=== PATIENT | female | born 1950 | race Caucasian/White ===

== ENCOUNTER 2017-08-02 09:04 | Inpatient (IN) | payer MEDICARE, OTHER ==
--- NOTE | 2017-08-02 09:28 | ED ---
General Adult HPI - General Chief complaint: Shortness of Breath Stated complaint: shortness of breath Time Seen by Provider: 08/02/17 09:13 Source: patient, RN notes reviewed Mode of arrival: wheelchair Limitations: no limitations - History of Present Illness Initial comments: Patient is a 66-year-old female presenting to the emergency room today with a chief complaint of increased shortness of breath over the last 3 months but she states it started with an upper respiratory infection. She states she still has a mild cough. No sputum production. She states she has been following up the family doctor. Most recently saw them yesterday has had lab work obtained. Patient states that last night she had increased shortness of breath when she was trying to sleep. She does admit that symptoms are worse when she tries to lay down flat or when she sits up. She also admits that when she gets up and is moving around too much she begins feeling more short of breath. Patient denies any pain. She denies any other complaints or symptoms. Patient states she is not a smoker. No history of heart or lung problems. She does admit to some swelling to the lower extremities at times. Patient denies any recent fever, chills, chest pain, back pain, abdominal pain, nausea or vomiting, numbness or tingling, dysuria or hematuria, constipation or diarrhea, headaches or visual changes, or any other complaints. - Related Data Home Medications Medication Instructions Recorded Confirmed No Known Home Medications [No 08/02/17 08/02/17 Known Home Medications] Allergies Allergy/AdvReac Type Severity Reaction Status Date / Time No Known Allergies Allergy Verified 08/02/17 09:20 Review of Systems ROS Statement: Those systems with pertinent positive or pertinent negative responses have been documented in the HPI. ROS Other: All systems not noted in ROS Statement are negative. Past Medical History Past Medical History: No Reported History History of Any Multi-Drug Resistant Organisms: None Reported Past Surgical History: Cholecystectomy Past Psychological History: No Psychological Hx Reported Smoking Status: Never smoker Past Alcohol Use History: None Reported General Exam - General Exam Comments Initial Comments: General: The patient is awake and alert, in no distress, and does not appear acutely ill. Eye: Pupils are equal, round and reactive to light, extra-ocular movements are intact. No nystagmus. There is normal conjunctiva bilaterally. No signs of icterus. Ears, nose, mouth and throat: There are moist mucous membranes and no oral lesions. Neck: The neck is supple, there is no tenderness or JVD. Cardiovascular: There is a regular rate and rhythm. No murmur, rub or gallop is appreciated. Respiratory: Lungs are clear to auscultation, respirations are non-labored, breath sounds are equal. No wheezes, stridor, rales, or rhonchi. Musculoskeletal: Normal ROM, no tenderness. Strength 5/5. Sensation intact. Pulses equal bilaterally 2+. No pitting edema. Neurological: A&O x 3. CN II-XII intact, There are no obvious motor or sensory deficits. Coordination appears grossly intact. Speech is normal. Skin: Skin is warm and dry and no rashes or lesions are noted. Psychiatric: Cooperative, appropriate mood & affect, normal judgment. Limitations: no limitations Course Vital Signs 08/02/17 08/02/17 08/02/17 09:06 09:27 10:33 Temperature 97.0 F L Pulse Rate 95 85 83 Respiratory 20 22 20 Rate Blood Pressure 194/103 159/95 173/99 O2 Sat by Pulse 96 94 L 95 Oximetry EKG Findings - EKG Comments: EKG Findings:: EKG performed at 0927: Shows sinus rhythm with occasional PVC at 92 bpm. Left axis deviation and left bundle branch block. SC interval 154. QRS 138 per QT/QTc 414/511. Medical Decision Making - Medical Decision Making Patient reexamined at this time shows no signs of distress. Chest x-ray does reveal a pneumonia. Patient's BNP greater than 8 hours. Patient's remaining labs unremarkable. Patient be admitted to the hospital as discussed with attending physician Dr. Mcgrath discussed with Dr. Patel who recommends checking d-dimer. Patient will be admitted. She will plan states understanding. IV antibiotics started here in the emergency room of Rocephin and azithromycin. - Lab Data Result diagrams: 08/02/17 09:40 08/02/17 09:40 Lab Results 08/02/17 08/02/17 08/02/17 Range/Units 09:40 09:40 09:40 WBC 7.7 (3.8-10.6) k/uL RBC 4.74 (3.80-5.40) m/uL Hgb 12.8 (11.4-16.0) gm/dL Hct 40.5 (34.0-46.0) % MCV 85.4 (80.0-100.0) fL MCH 26.9 (25.0-35.0) pg MCHC 31.5 (31.0-37.0) g/dL RDW 14.7 (11.5-15.5) % Plt Count 209 (150-450) k/uL Neutrophils % 74 % Lymphocytes % 18 % Monocytes % 6 % Eosinophils % 1 % Basophils % 0 % Neutrophils # 5.7 (1.3-7.7) k/uL Lymphocytes # 1.4 (1.0-4.8) k/uL Monocytes # 0.4 (0-1.0) k/uL Eosinophils # 0.1 (0-0.7) k/uL Basophils # 0.0 (0-0.2) k/uL Hypochromasia Slight PT (9.0-12.0) sec INR (<1.2) APTT (22.0-30.0) sec Sodium 144 (137-145) mmol/L Potassium 4.3 (3.5-5.1) mmol/L Chloride 105 (98-107) mmol/L Carbon Dioxide 25 (22-30) mmol/L Anion Gap 14 mmol/L BUN 23 H (7-17) mg/dL Creatinine 0.77 (0.52-1.04) mg/dL Est GFR (CKD-EPI)AfAm >90 (>60 ml/min/1.73 sqM) Est GFR (CKD-EPI)NonAf 81 (>60 ml/min/1.73 sqM) Glucose 93 (74-99) mg/dL Calcium 9.0 (8.4-10.2) mg/dL Total Bilirubin 0.7 (0.2-1.3) mg/dL AST 27 (14-36) U/L ALT 31 (9-52) U/L Alkaline Phosphatase 102 (38-126) U/L Total Creatine Kinase 38 (30-135) U/L CK-MB (CK-2) 1.1 (0.0-2.4) ng/mL CK-MB (CK-2) Rel Index 2.9 Troponin I 0.027 (0.000-0.034) ng/mL NT-Pro-B Natriuret Pep pg/mL Total Protein 6.8 (6.3-8.2) g/dL Albumin 4.1 (3.5-5.0) g/dL Urine Color Urine Appearance (Clear) Urine pH (5.0-8.0) Ur Specific Galva (1.001-1.035) Urine Protein (Negative) Urine Glucose (UA) (Negative) Urine Ketones (Negative) Urine Blood (Negative) Urine Nitrite (Negative) Urine Bilirubin (Negative) Urine Urobilinogen (<2.0) mg/dL Ur Leukocyte Esterase (Negative) 08/02/17 08/02/17 08/02/17 Range/Units 09:40 09:40 11:14 WBC (3.8-10.6) k/uL RBC (3.80-5.40) m/uL Hgb (11.4-16.0) gm/dL Hct (34.0-46.0) % MCV (80.0-100.0) fL MCH (25.0-35.0) pg MCHC (31.0-37.0) g/dL RDW (11.5-15.5) % Plt Count (150-450) k/uL Neutrophils % % Lymphocytes % % Monocytes % % Eosinophils % % Basophils % % Neutrophils # (1.3-7.7) k/uL Lymphocytes # (1.0-4.8) k/uL Monocytes # (0-1.0) k/uL Eosinophils # (0-0.7) k/uL Basophils # (0-0.2) k/uL Hypochromasia PT 11.3 (9.0-12.0) sec INR 1.2 H (<1.2) APTT 23.3 (22.0-30.0) sec Sodium (137-145) mmol/L Potassium (3.5-5.1) mmol/L Chloride (98-107) mmol/L Carbon Dioxide (22-30) mmol/L Anion Gap mmol/L BUN (7-17) mg/dL Creatinine (0.52-1.04) mg/dL Est GFR (CKD-EPI)AfAm (>60 ml/min/1.73 sqM) Est GFR (CKD-EPI)NonAf (>60 ml/min/1.73 sqM) Glucose (74-99) mg/dL Calcium (8.4-10.2) mg/dL Total Bilirubin (0.2-1.3) mg/dL AST (14-36) U/L ALT (9-52) U/L Alkaline Phosphatase (38-126) U/L Total Creatine Kinase (30-135) U/L CK-MB (CK-2) (0.0-2.4) ng/mL CK-MB (CK-2) Rel Index Troponin I (0.000-0.034) ng/mL NT-Pro-B Natriuret Pep 8440 pg/mL Total Protein (6.3-8.2) g/dL Albumin (3.5-5.0) g/dL Urine Color Yellow Urine Appearance Clear (Clear) Urine pH 5.5 (5.0-8.0) Ur Specific Galva 1.017 (1.001-1.035) Urine Protein Trace H (Negative) Urine Glucose (UA) Negative (Negative) Urine Ketones 1+ H (Negative) Urine Blood Negative (Negative) Urine Nitrite Negative (Negative) Urine Bilirubin Negative (Negative) Urine Urobilinogen <2.0 (<2.0) mg/dL Ur Leukocyte Esterase Negative (Negative) Disposition Clinical Impression: Community acquired pneumonia, CHF (congestive heart failure) Disposition: ADMITTED IP TO THIS [facility] Condition: Stable Is patient prescribed a controlled substance at d/c from ED?: No Referrals: Cleveland Patel MD [Primary Care Provider] - 1-2 days Time of Disposition: 10:40
--- NOTE | 2017-08-02 09:56 | XR ---
EXAMINATION TYPE: XR chest 2V DATE OF EXAM: 08/02/2017 COMPARISON: NONE TECHNIQUE: PA and lateral views submitted. HISTORY: Difficulty breathing and cough FINDINGS: Bilateral lower lobe infiltrate with small effusion. The heart is enlarged. Curvature the spine noted . No pneumothorax. Arthropathy of the shoulders. Mild central venous interstitial changes. IMPRESSION: 1. Bilateral lower lobe infiltrate and small effusion. Correlate for mild central venous congestion.
[2017-08-02 10:01] LABS: Basophils % (A) 0 %; Eosinophils # (A) 0.1 k/uL (0-0.7); Eosinophils % (A) 1 %; HCT 40.5 % (34.0-46.0); HGB 12.8 gm/dL (11.4-16.0); Hypochromasia Slight; Lymphocytes # (A) 1.4 k/uL (1.0-4.8); Lymphocytes % (A) 18 %; MCH 26.9 pg (25.0-35.0); MCHC 31.5 g/dL (31.0-37.0); MCV 85.4 fL (80.0-100.0); Mean Platelet Volume 8.6; Monocytes # (A) 0.4 k/uL (0-1.0); Monocytes % (A) 6 %; Neutrophils # (A) 5.7 k/uL (1.3-7.7); Neutrophils % (A) 74 %; Platelet Count 209 k/uL (150-450); RBC 4.74 m/uL (3.80-5.40); RDW 14.7 % (11.5-15.5); WBC 7.7 k/uL (3.8-10.6)
[2017-08-02 10:09] LABS: INR 1.2 (<1.2); Partial Thromboplastin Time 23.3 sec (22.0-30.0); Prothrombin Time 11.3 sec (9.0-12.0)
[2017-08-02 10:11] LABS: ALT 31 U/L (9-52); AST 27 U/L (14-36); Albumin 4.1 g/dL (3.5-5.0); Alkaline Phosphatase 102 U/L (38-126); Anion Gap 14 mmol/L; Blood Urea Nitrogen 23 mg/dL (7-17); Carbon Dioxide 25 mmol/L (22-30); Chloride 105 mmol/L (98-107); Glucose 93 mg/dL (74-99); Potassium 4.3 mmol/L (3.5-5.1); Sodium 144 mmol/L (137-145); Total Bilirubin 0.7 mg/dL (0.2-1.3); Total Protein 6.8 g/dL (6.3-8.2)
[2017-08-02 10:38] LABS: Creatine Kinase MB 1.1 ng/mL (0.0-2.4); Troponin I 0.027 ng/mL (0.000-0.034)
[2017-08-02] MEDS ORDERED: cefTRIAXone IN SWFI 1,000 MG/10 ML SYRINGE IVP STA (10:49)
[2017-08-02] MEDS ORDERED: AZITHROMYCIN 500 MG in SODIUM CHLORIDE 0.9% 250 ML IVPB STA (10:49)
[2017-08-02 11:35] LABS: Appearance,Urine Clear (Clear); Bilirubin,Urine Negative (Negative); Blood,Urine Negative (Negative); Color,Urine Yellow; Glucose,Urine (UA) Negative (Negative); Ketones,Urine 1+ (Negative); Leukocyte Esterase,Urine Negative (Negative); Nitrite,Urine Negative (Negative); PH, Urine 5.5 (5.0-8.0); Protein,Urine Trace (Negative); Specific Gravity,Urine 1.017 (1.001-1.035); Urobilinogen,Urine <2.0 mg/dL (<2.0)
[2017-08-02] MEDS ORDERED: LORazepam 2 MG/ML INJ IV PRN (11:36)
[2017-08-02] MEDS ORDERED: ONDANSETRON 4 MG/2 ML VIAL IVP PRN (11:36)
[2017-08-02] MEDS ORDERED: IBUPROFEN 400 MG TAB PO PRN (11:36)
[2017-08-02] MEDS ORDERED: ACETAMINOPHEN TAB 325 MG TAB PO PRN (11:36)
[2017-08-02] MEDS ORDERED: NALOXONE 0.4 MG/ML 1 ML VIAL IV PRN (11:36)
[2017-08-02] MEDS ORDERED: SODIUM CHLORIDE 0.9% 1,000 ML IV ONE (11:36)
[2017-08-02] MEDS ORDERED: PNEUMOCOCCAL VACC-PNEUMOVAX 23 25 MCG/0.5 ML VIAL IM ONE (13:08)
--- NOTE | 2017-08-02 17:54 | NM ---
EXAMINATION TYPE: NM pul vent and perfuse DATE OF EXAM: 08/02/2017 COMPARISON: NONE HISTORY: TECHNIQUE: Utilizing inhalation of 29.9 mCi Tc 99m DTPA aerosol and intravenous injection of 5.22 mC i of Tc 99m MAA, ventilation and perfusion images are acquired post injection in multiple projections . FINDINGS: There are numerous areas of ventilation abnormality in the periphery of both lungs. Perfusion images show small subsegmental peripheral defects. There is no ventilation/perfusion mismatch. The ventilati on abnormalities are worse than the perfusion abnormalities. IMPRESSION: No evidence of pulmonary embolism. There is a low probability. There is bilateral moderate diffuse ai rway disease.
[2017-08-03 08:13] LABS: Basophils % (A) 0 %; Eosinophils # (A) 0.2 k/uL (0-0.7); Eosinophils % (A) 3 %; HCT 40.7 % (34.0-46.0); HGB 12.3 gm/dL (11.4-16.0); Hypochromasia Moderate; Lymphocytes # (A) 1.5 k/uL (1.0-4.8); Lymphocytes % (A) 24 %; MCH 26.3 pg (25.0-35.0); MCHC 30.3 g/dL (31.0-37.0); MCV 86.9 fL (80.0-100.0); Mean Platelet Volume 8.2; Monocytes # (A) 0.5 k/uL (0-1.0); Monocytes % (A) 7 %; Neutrophils # (A) 4.2 k/uL (1.3-7.7); Neutrophils % (A) 65 %; Platelet Count 195 k/uL (150-450); RBC 4.68 m/uL (3.80-5.40); RDW 14.9 % (11.5-15.5); WBC 6.4 k/uL (3.8-10.6)
[2017-08-03] MEDS: cefTRIAXone IN SWFI 1,000 MG/10 ML SYRINGE IVP SCH (08:18)
[2017-08-03 08:23] LABS: Albumin 3.6 g/dL (3.5-5.0); Potassium 4.5 mmol/L (3.5-5.1); Total Bilirubin 0.4 mg/dL (0.2-1.3); Total Protein 6.4 g/dL (6.3-8.2)
[2017-08-03] MEDS ORDERED: AZITHROMYCIN 500 MG in SODIUM CHLORIDE 0.9% 250 ML IVPB SCH (09:00)
--- NOTE | 2017-08-03 12:31 | P.CRDCN ---
History of Present Illness Consult date: 08/03/17 History of present illness: This is a 66-year-old female with no significant past medical history , is admitted to the hospital with complaints of increasing shortness of breath and orthopnea. Patient claims that walking to her car, make her short of breath. She also noticed mild swelling of the feet. She claims the symptoms have been going on for the last 2 months. She denied any chest pain, palpitations, dizziness or syncopal episodes. Her EKG showed evidence of left bundle branch block pattern. Her echo Card[place] showed severely impaired LV function. Her BNP is elevated. The findings are consistent with cardiomyopathy and congestive heart failure. Patient has family history of CHF in her mother. I' m going to start her on Coreg, lisinopril, Lasix, and spironolactone. If the LV function doesn't improve with medical therapy, patient may benefit from biventricular pacemaker. Further recommendations depend upon the clinical course. Patient may also need further evaluation to rule out underlying ischemic heart disease. She claims she doesn't have any history of hypertension , diabetes or hypercholesterolemia. She hasn't been taking any medication Previously. on a consistent basis. Review of Systems As per HPI Past Medical History Past Medical History: GERD/Reflux, Hyperlipidemia, Osteoarthritis (OA), Pneumonia Additional Past Medical History / Comment(s): Pt states lately she has been running high blood pressures, pneumonia as a child, high cholesterol but pt believes she took herself off her medication years ago, arthritis bilateral knees. History of Any Multi-Drug Resistant Organisms: None Reported Past Surgical History: Cholecystectomy, Orthopedic Surgery, Tubal Ligation Additional Past Surgical History / Comment(s): L knee arthroscopy, colonoscopy. Past Anesthesia/Blood Transfusion Reactions: No Reported Reaction Smoking Status: Never smoker - Past Family History Father Family Medical History: Congestive Heart Failure (CHF), Osteoarthritis (OA) Additional Family Medical History / Comment(s): Father of CHF at the age of 73 yrs. Mother Family Medical History: Congestive Heart Failure (CHF) Additional Family Medical History / Comment(s): Mother of CHF at the age of 80yrs. Medications and Allergies Home Medications Medication Instructions Recorded Confirmed Type No Known Home Medications [No 08/02/17 08/02/17 History Known Home Medications] Allergies Allergy/AdvReac Type Severity Reaction Status Date / Time No Known Allergies Allergy Verified 08/02/17 09:20 Physical Exam Vitals: Vital Signs Temp Pulse Resp BP Pulse Ox 08/03/17 08:20 76 16 08/03/17 06:00 97.5 F L 76 16 143/89 93 L 08/02/17 22:35 97.9 F 76 16 133/74 92 L 08/02/17 14:34 97.9 F 92 16 148/94 94 L 08/02/17 12:28 96.8 F L 97 16 159/100 95 Intake and Output 08/02/17 08/03/17 08/03/17 22:59 06:59 14:59 Intake Total 275 Balance 275 Intake: Oral 275 Other: Voiding Method Toilet Toilet # Voids 1 2 Weight 81.5 kg 81.5 kg GENERAL EXAM: Patient is alert and oriented and doesn't appear to be in any acute distress HEENT: Normocephalic. Normal reaction of pupils, equal size, normal range of extraocular motion. No erythema or exudates in the throat. NECK: No masses, no nuchal rigidity. There is jugular venous distention CHEST: No chest wall deformity. LUNGS: Equal air entry with no crackles or wheeze. Diminished breath sounds at bases HEART: S1 and S2 normal with no audible mumurs or gallops. Regular rhythm, femorals equal on both sides.. ABDOMEN: No hepatosplenomegaly, normal bowel sounds, no guarding or rigidity. SKIN: No rashes CENTRAL NERVOUS SYSTEM: No focal deficits. EXTREMITIES: No cyanosis, clubbing. 2+ edema. Results 08/03/17 07:55 08/03/17 07:55 Cardiac Enzymes 08/03/17 Range/Units 07:55 AST 24 (14-36) U/L CBC 08/03/17 Range/Units 07:55 WBC 6.4 (3.8-10.6) k/uL RBC 4.68 (3.80-5.40) m/uL Hgb 12.3 (11.4-16.0) gm/dL Hct 40.7 (34.0-46.0) % Plt Count 195 (150-450) k/uL Comprehensive Metabolic Panel 08/03/17 Range/Units 07:55 Sodium 146 H (137-145) mmol/L Potassium 4.5 (3.5-5.1) mmol/L Chloride 106 (98-107) mmol/L Carbon Dioxide 29 (22-30) mmol/L BUN 19 H (7-17) mg/dL Creatinine 0.83 (0.52-1.04) mg/dL Glucose 106 H (74-99) mg/dL Calcium 9.0 (8.4-10.2) mg/dL AST 24 (14-36) U/L ALT 41 (9-52) U/L Alkaline Phosphatase 86 (38-126) U/L Total Protein 6.4 (6.3-8.2) g/dL Albumin 3.6 (3.5-5.0) g/dL Current Medications Generic Name Dose Route Start Last Admin Trade Name Freq PRN Reason Stop Dose Admin Acetaminophen 650 mg 08/02/17 11:36 Tylenol Tab PO Q6HR PRN Mild Pain or Fever > 100.5 Azithromycin 500 mg 08/04/17 09:00 Zithromax PO DAILY [facility] Carvedilol 3.125 mg 08/03/17 17:30 Coreg PO BID-W/MEALS [facility] Ceftriaxone Sodium 1,000 mg 08/03/17 09:00 08/03/17 08:18 Rocephin IVP 1,000 mg Q24HR [place] Administration Furosemide 20 mg 08/03/17 12:30 Lasix IV Q12HR [facility] Ibuprofen 400 mg 08/02/17 11:36 Motrin PO Q6HR PRN Mild Pain or Fever > 100.5 Lisinopril 5 mg 08/03/17 12:30 Zestril PO DAILY [facility] Lorazepam 0.5 mg 08/02/17 11:36 Ativan IV Q6HR PRN Anxiety Naloxone HCl 0.2 mg 08/02/17 11:36 Narcan IV Q2M PRN Opioid Reversal Ondansetron HCl 4 mg 08/02/17 11:36 Zofran IVP Q8HR PRN Nausea And Vomiting Intake and Output 08/02/17 08/03/17 08/03/17 22:59 06:59 14:59 Intake Total 275 Balance 275 Intake: Oral 275 Other: Voiding Method Toilet Toilet # Voids 1 2 Weight 81.5 kg 81.5 kg Patient Weight 08/04/17 06:59 Weight 81.5 kg 08/03/17 07:55 08/03/17 07:55 EKG Interpretations (text) Sinus rhythm with left bundle-branch block pattern Assessment and Plan (1) CHF (congestive heart failure) Current Visit: Yes Status: Acute Code(s): I50.9 - HEART FAILURE, UNSPECIFIED SNOMED Code(s): 12298869 (2) Cardiomyopathy Current Visit: Yes Status: Acute Code(s): I42.9 - CARDIOMYOPATHY, UNSPECIFIED SNOMED Code(s): 52204213 (3) Left bundle branch block (LBBB) Current Visit: Yes Status: Acute Code(s): I44.7 - LEFT BUNDLE-BRANCH BLOCK, UNSPECIFIED SNOMED Code(s): 75865160 Plan: Patient is going be started on Coreg, lisinopril, Lasix and aldactone. Follow electrolytes closely. If LV function doesn't improve with medical therapy, patient may need a baby pacemaker and possible defibrillator.
[2017-08-03] MEDS: LISINOPRIL 5 MG TAB PO SCH (13:09)
[2017-08-03] MEDS: FUROSEMIDE 10 MG/ML 2 ML VIAL IV SCH ×2 (13:09→20:22)
[2017-08-03] MEDS: SPIRONOLACTONE 25 MG TAB PO SCH (13:10)
--- NOTE | 2017-08-03 13:11 | ECHOF ---
Referral Reason:SOB, cardiomegaly MEASUREMENTS -------- HEIGHT: 157.5 cm WEIGHT: 81.2 kg BP: 148/94 RVIDd: 2.8 cm (< 3.3) IVSd: 1.2 cm (0.6 - 1.1) LVIDd: 5.2 cm (3.9 - 5.3) LVPWd: 1.3 cm (0.6 - 1.1) IVSs: 1.5 cm LVIDs: 4.8 cm LVPWs: 2.0 cm LA Diam: 4.7 cm (2.7 - 3.8) LAESV Index (A-L): 44.68 ml/m Ao Diam: 3.3 cm (2.0 - 3.7) AV Cusp: 2.2 cm (1.5 - 2.6) MV EXCURSION: 14.924 mm (> 18.000) MV EF SLOPE: 75 mm/s (70 - 150) EPSS: 1.9 cm MV E Terry: 1.22 m/s MV DecT: 156 ms MV A Terry: 0.44 m/s MV E/A Ratio: 2.80 RAP: 15.00 mmHg RVSP: 54.20 mmHg FINDINGS -------- Sinus rhythm. This was a technically good study. The left ventricular size is normal. There is mild concentric left ventricular hypertrophy. Overa ll left ventricular systolic function is severely impaired with, an EF < 20%. Septal wall motion is delayed, and consistent with conduction delay/bundle branch block. The right ventricle is normal in size. LA is severely dilated >40 ml/m2 The right atrium is normal in size. There is mild aortic valve sclerosis. There is mild aortic regurgitation. The mitral valve leaflets are mildly thickened. Mild mitral annular calcification present. Modera te mitral regurgitation is present. Mild tricuspid regurgitation present. There is moderate pulmonary hypertension. The right ventric ular systolic pressure, as measured by Doppler, is 54.20mmHg. Trace/mild (physiologic) pulmonic regurgitation. The aortic root size is normal. The inferior vena cava is dilated with no significant inspiratory collapse which is consistent estima tom right atrial pressure of >15 mmHg. There is no pericardial effusion. CONCLUSIONS -------- 1. Sinus rhythm. 2. This was a technically good study. 3. The left ventricular size is normal. 4. There is mild concentric left ventricular hypertrophy. 5. Overall left ventricular systolic function is severely impaired with, an EF < 20%. 6. Septal wall motion is delayed, and consistent with conduction delay/bundle branch block. 7. The right ventricle is normal in size. 8. LA is severely dilated >40 ml/m2 9. The right atrium is normal in size. 10. There is mild aortic valve sclerosis. 11. There is mild aortic regurgitation. 12. The mitral valve leaflets are mildly thickened. 13. Mild mitral annular calcification present. 14. Moderate mitral regurgitation is present. 15. Mild tricuspid regurgitation present. 16. There is moderate pulmonary hypertension. 17. The right ventricular systolic pressure, as measured by Doppler, is 54.20mmHg. 18. Trace/mild (physiologic) pulmonic regurgitation. 19. The aortic root size is normal. 20. The inferior vena cava is dilated with no significant inspiratory collapse which is consistent es timated right atrial pressure of >15 mmHg. 21. There is no pericardial effusion. ANKLE PATCH MOLDER: Kayleigh Torrez RDCS
[2017-08-03] MEDS: CARVEDILOL 3.125 MG TAB PO SCH (17:22)
--- NOTE | 2017-08-03 19:13 | HP ---
HISTORY AND PHYSICAL CHIEF COMPLAINT: Shortness of breath. HISTORY OF PRESENT ILLNESS: This is another admission for this 66-year-old white female. She was just in the office recently with a complaint of shortness of breath. Workup was unremarkable. She had no fever, chills, cough, hemoptysis, etc. She came back to the emergency room on the day of admission and it was thought that she may have bilateral lower lobe bronchopneumonia findings. However, she was not febrile and her BNP was quite high. Chest x-ray demonstrates cardiomegaly. REVIEW OF SYSTEMS: She denies any syncope, neurologic changes, problems with vision or hearing, hemoptysis, palpitations, murmurs, high fever, abdominal pain, vomiting, diarrhea, melena, hematochezia, jaundice, hematuria, frequency, urgency, arthralgias, diabetes, etc. Past medical history, family history, personal and social histories reveal that she is not allergic to any medication. She has had a history in the past of hypertension and hyperlipidemia. She has never smoked. She does not drink. She does not have a family history that is significant. PHYSICAL EXAM: Blood pressure 124/90, pulse of 84, respirations 16 and she is afebrile. In general, she appeared to be slightly short of breath and in no acute distress. Skin color is normal skin is warm, dry. Lymph nodes not enlarged. Head, ears, eyes, nose, mouth and throat were normal and neck veins not distended. Thyroid is not enlarged. Chest demonstrated occasional rales at the bases. Cardiac demonstrated what sounded like sinus rhythm and no murmurs or extra sounds. The abdomen is soft, nontender. There are no masses or visceromegaly. Extremities were normal and neurologically she is intact. She is admitted to the hospital with diagnoses: 1. Shortness of breath. 2. Questionable lower lobe bronchopneumonia. 3. Questionable congestive heart failure. PLAN: 1. Bed rest. 2. IV fluids. 3. Updrafts. 4. Echocardiogram. 5. D-dimer. MMODL / IJN: [id number] /
[2017-08-04] MEDS: cefTRIAXone IN SWFI 1,000 MG/10 ML SYRINGE IVP SCH (07:53)
[2017-08-04] MEDS: LISINOPRIL 5 MG TAB PO SCH (07:55)
[2017-08-04] MEDS: SPIRONOLACTONE 25 MG TAB PO SCH (07:55)
[2017-08-04] MEDS: CARVEDILOL 3.125 MG TAB PO SCH ×2 (07:55→17:29)
[2017-08-04] MEDS: AZITHROMYCIN 500 MG TAB PO SCH (07:55)
[2017-08-04 08:08] LABS: Calcium 9.5 mg/dL (8.4-10.2); Potassium 4.4 mmol/L (3.5-5.1)
--- NOTE | 2017-08-04 09:10 | P.PN ---
Subjective Progress Note Date: 08/04/17 This 66-year-old female was admitted with increasing shortness of breath and pedal swelling and also orthopnea. She was found to have cardiomyopathy, left bundle branch block pattern and evidence of CHF. Patient was started on IV diuretics along with Aldactone and also lisinopril. Patient is tolerating the medication well. She is feeling much better. Edema has cleared. Her electrolytes are within normal limits. I'm going to discontinue IV Lasix and start her on by mouth Lasix. The antibiotics could be discontinued because I don't believe patient had pneumonia. Patient could be discharged home within 24 hours. Follow-up in the office in one to 2 weeks. Objective - Vital Signs Vital signs: Vital Signs Temp 96.1 F L 08/04/17 06:10 Pulse 61 08/04/17 06:10 Resp 14 08/04/17 08:06 BP 124/69 08/04/17 06:10 Pulse Ox 94 L 08/04/17 06:10 Intake & Output 08/03/17 08/04/17 08/04/17 18:59 06:59 18:59 Intake Total 275 Balance 275 Weight 81.5 kg 78.5 kg 78.5 kg Intake: Oral 275 Other: Voiding Method Toilet Toilet Toilet # Voids 3 2 - Exam GENERAL EXAM: Patient is alert and oriented and doesn't appear to be in any acute distress HEENT: Normocephalic. Normal reaction of pupils, equal size, normal range of extraocular motion. No erythema or exudates in the throat. NECK: No masses, no nuchal rigidity. CHEST: No chest wall deformity. LUNGS: Equal air entry with no crackles or wheeze. HEART: S1 and S2 normal with no audible mumurs or gallops. Regular rhythm, femorals equal on both sides.. ABDOMEN: No hepatosplenomegaly, normal bowel sounds, no guarding or rigidity. SKIN: No rashes CENTRAL NERVOUS SYSTEM: No focal deficits. EXTREMITIES: No cyanosis, clubbing or edema. - Labs CBC & Chem 7: 08/03/17 07:55 08/04/17 07:34 Labs: Abnormal Lab Results - Last 24 Hours (Table) 08/04/17 Range/Units 07:34 Sodium 147 H (137-145) mmol/L Carbon Dioxide 33 H (22-30) mmol/L BUN 19 H (7-17) mg/dL Microbiology - Last 24 Hours (Table) 08/02/17 09:40 Blood Culture - Preliminary Blood No Growth after 24 hours Assessment and Plan (1) CHF (congestive heart failure) Current Visit: Yes Status: Acute Code(s): I50.9 - HEART FAILURE, UNSPECIFIED SNOMED Code(s): 83059598 (2) Cardiomyopathy Current Visit: Yes Status: Acute Code(s): I42.9 - CARDIOMYOPATHY, UNSPECIFIED SNOMED Code(s): 85689741 (3) Left bundle branch block (LBBB) Current Visit: Yes Status: Acute Code(s): I44.7 - LEFT BUNDLE-BRANCH BLOCK, UNSPECIFIED SNOMED Code(s): 27678960 (4) Acute systolic CHF (congestive heart failure) Current Visit: Yes Status: Acute Code(s): I50.21 - ACUTE SYSTOLIC ( CONGESTIVE) HEART FAILURE SNOMED Code(s): 429729969 Plan: Patient is feeling much better. Responding to medical treatment. I will switch her to by mouth diuretics. Patient could be discharged home within next 24 hours. Follow-up in the office in one to 2 weeks
[2017-08-04] MEDS: FUROSEMIDE 10 MG/ML 2 ML VIAL IV SCH (09:16)
[2017-08-04] MEDS: FUROSEMIDE 40 MG TAB PO SCH (09:23)
[2017-08-05 01:57] VITALS: TEMP 97
[2017-08-05 07:27] VITALS: BP 130/82; PULSE 74; RESP 14
[2017-08-05] MEDS: cefTRIAXone IN SWFI 1,000 MG/10 ML SYRINGE IVP SCH (07:50)
[2017-08-05] MEDS: AZITHROMYCIN 500 MG TAB PO SCH (07:51)
[2017-08-05] MEDS: CARVEDILOL 3.125 MG TAB PO SCH (07:51)
[2017-08-05] MEDS: LISINOPRIL 5 MG TAB PO SCH (07:51)
[2017-08-05] MEDS: SPIRONOLACTONE 25 MG TAB PO SCH (07:51)
[2017-08-05] MEDS: FUROSEMIDE 40 MG TAB PO SCH (07:51)
[2017-08-05] MEDS ORDERED: ASPIRIN 81 MG PO SCH (09:15)
[2017-08-05 10:05] LABS: Cholesterol 155 mg/dL (<200); HDL Cholesterol 53 mg/dL (40-60); LDL Cholesterol,Calculated 83 mg/dL (0-99); Triglycerides 94 mg/dL (<150)
--- NOTE | 2017-08-05 14:59 | P.PN ---
Subjective Progress Note Date: 08/05/17 Mrs. Cueva is a pleasant 66-year-old female with no significant past medical history. She came in 2 days ago with increasing dyspnea on exertion and has been newly diagnosed with systolic heart failure of unknown etiology. She was started on coreg3.125 mg BID, spironalactone 12.5 mg daily, lisinopril 5 mg daily and was diuresed with IV lasix. Lasix has been transitioned to oral. She is seen sitting up in bed in no acute distress. She states her breathing has greatly improved and she has been up ambulating with no chest pain or increasing shortness of breath. She denies nausea, vomiting, palpitations, diaphoresis. Objective - Vital Signs Vital signs: Vital Signs Temp 97.0 F L 08/05/17 07:00 Pulse 74 08/05/17 07:00 Resp 14 08/05/17 07:00 BP 130/82 08/05/17 07:00 Pulse Ox 99 08/05/17 07:00 Intake & Output 08/04/17 08/05/17 08/05/17 18:59 06:59 18:59 Intake Total 800 Balance 800 Weight 78.5 kg 77 kg Intake: Oral 800 Other: Voiding Method Toilet # Voids 4 2 # Bowel Movements 1 - Exam Blood pressure 130/82 heart rate 74 afebrile maintaining oxygen saturation on room air. GENERAL: Well-appearing, well-nourished and in no acute distress. NECK: Supple without JVD or thyromegaly. LUNGS: Breath sounds clear to auscultation bilaterally. Respiration equal and unlabored. No wheezes, rales or rhonchi. HEART: Regular rate and rhythm with murmur at the base , no rubs or gallops. S1 and S2 heard. EXTREMITIES: Normal range of motion, no edema. No clubbing or cyanosis. Peripheral pulses intact and strong. - Labs CBC & Chem 7: 08/03/17 07:55 08/04/17 07:34 Labs: Microbiology - Last 24 Hours (Table) 08/02/17 09:40 Blood Culture - Preliminary Blood No Growth after 48 hours Assessment and Plan Assessment: ASSESSMENT 1. Acute systolic heart failure 2. Cardiomyopathy 3. Left bundle branch block PLAN From cardiology perspective, we will add small dose of aspirin 81 mg daily, increase coreg to 6.25 mg BID and check a lipid panel. Continue with aldactone 12.5 mg daily, lasix 40 mg daily, lisinopril 5 daily. Will require further evaluation as to exact etiology of heart failure with cardiac catheterization. Appointment to be made to see Dr. Moreno in 2 weeks. Nurse Practitioner note has been reviewed, I agree with a documented findings and plan of care. Patient was seen and examined.
[2017-08-05] MEDS ORDERED: CARVEDILOL 6.25 MG TAB PO SCH (17:30)
--- NOTE | 2017-08-07 13:17 | PN ---
PROGRESS NOTE DATE OF SERVICE: 08/04/2017 CHIEF COMPLAINT: Shortness of breath and pneumonia. HISTORY OF PRESENT ILLNESS: This lady is doing fairly well and she has had no fever, chills, cough, etc. Her overall evaluation would suggest congestive heart failure and not pneumonia. PHYSICAL EXAM: Chest is quite clear. There are no rales or rhonchi. Cardiac exam is normal. Abdomen is soft, nontender. IMPRESSION: Probable congestive heart failure. PLAN: Continue workup and diuresis. She is doing very well and can probably go home in the next day or two. MMODL / IJN: [id number] /
--- NOTE | 2017-08-07 13:38 | DS ---
DISCHARGE SUMMARY Discharge summary for 08/05/2017 CHIEF COMPLAINT: Shortness of breath. HISTORY OF PRESENT ILLNESS AND PHYSICAL EXAM: The details of this lady's history and physical can be found in the initial workup. LABORATORY STUDIES: While she was in a hospital she had laboratory studies details which can be found in the laboratory section of her chart. COURSE IN HOSPITAL: After admission she was placed on bedrest, started on intravenous fluids and updrafts. She was initially treated as pneumonia, but it was determined that her more most likely diagnosis was one of congestive heart failure. She was improving and doing well and it was felt that she could go home on the and she will follow up in a few days and will be involved in continual ongoing investigation of what is probably a cardiomyopathy. FINAL DIAGNOSES: 1. Acute congestive heart failure. 2. Cardiomyopathy. OPERATIONS: None. CONSULTATIONS: Cardiology. She is improved. MMMARIO / JAVED: [id number] /
== END 2017-08-05 12:34 | disposition home or self-care (01) | DRG 292 ==
LOC: EC 09:04 → 4MS4W 11:26
PROVIDERS: ADMIT Family Medicine; ATTEND Family Medicine
DX: I50.21 Acute systolic (congestive) heart failure (principal); I42.9 Cardiomyopathy, unspecified; I44.7 Left bundle-branch block, unspecified; K21.9 Gastro-esophageal reflux disease without esophagitis; M17.0 Bilateral primary osteoarthritis of knee; Z79.899 Other long term (current) drug therapy; Z82.49 Family history of ischemic heart disease and other diseases of the circulatory system; Z90.49 Acquired absence of other specified parts of digestive tract
CPT/HCPCS: 36415; 71046; 78582; 80048; 80053; 80061; 81003; 82550; 82553; 83880; 84484; 85025; 85379; 85610; 85730; 87040; 90732; 93005; 93306; 96365; 96375; 99285

== ENCOUNTER → 2017-09-30 | Outpatient (CLI) | payer SELFPAY ==
--- NOTE | 2017-09-30 15:55 | US ---
EXAMINATION TYPE: US kidneys/renal and bladder DATE OF EXAM: 09/30/2017 COMPARISON: NONE CLINICAL HISTORY: N18.9 Chronic Kidney Disease. EXAM MEASUREMENTS: Right Kidney: 10.0 x 3.6 x 4.1 cm Left Kidney: 10.0 x 4.9 x 4.5 cm Right Kidney: No hydronephrosis or masses seen Left Kidney: No hydronephrosis or masses seen Bladder: not fully distended There is no evidence for hydronephrosis at this point in time. No nephrolithiasis is seen. No abigail s are identified. The urinary bladder is anechoic. Bilateral ureteral jets are seen. IMPRESSION: No hydronephrosis or nephrolithiasis. No sonographic sequela of medical renal disease.
== END | disposition home or self-care (01) ==
LOC: RADUSWWP 15:25
PROVIDERS: ATTEND Family Medicine
DX: N18.9 Chronic kidney disease, unspecified (principal)
CPT/HCPCS: 76770

== ENCOUNTER → 2017-10-30 | Outpatient (CLI) | payer BC, MEDICARE ==
--- NOTE | 2017-10-30 14:14 | MM ---
Reason for exam: screening (asymptomatic). Last mammogram was performed 3 years and 9 months ago. History: Patient is postmenopausal. Physical Findings: A clinical breast exam by your physician is recommended on an annual basis and results should be correlated with mammographic findings. MG Screening Mammo w CAD Bilateral CC and MLO view(s) were taken. Prior study comparison: January 22, 2014, bilateral MG screening mammo w CAD. November 13, 2011, bilateral digital screening mammo w/CAD. There are scattered fibroglandular densities. Finding: There are typically benign vascular, dystrophic, round calcifications in both breasts. There is no discrete abnormality. ASSESSMENT: Benign, BI-RAD 2 RECOMMENDATION: Routine screening mammogram of both breasts in 1 year.
== END | disposition home or self-care (01) ==
LOC: RADMAMWWP 10-11 14:44
PROVIDERS: ATTEND Family Medicine
DX: Z12.31 Encounter for screening mammogram for malignant neoplasm of breast (principal)
CPT/HCPCS: 77067

== ENCOUNTER → 2018-01-08 | Outpatient (CLI) | payer MEDICARE ==
[2018-01-08 13:25] LABS: Potassium 4.8 mmol/L (3.5-5.1)
[2018-01-08 13:32] LABS: MCH 30.7 pg (25.0-35.0); MCHC 31.5 g/dL (31.0-37.0); MCV 97.5 fL (80.0-100.0); Mean Platelet Volume 7.1; Platelet Count 253 k/uL (150-450); RDW 12.9 % (11.5-15.5); WBC 8.6 k/uL (3.8-10.6)
== END | disposition home or self-care (01) ==
LOC: LABPAT 11:58
PROVIDERS: ATTEND Internal Medicine Cardiovascular Disease
DX: Z01.812 Encounter for preprocedural laboratory examination (principal); I25.10 Atherosclerotic heart disease of native coronary artery without angina pectoris; I42.0 Dilated cardiomyopathy; I42.2 Other hypertrophic cardiomyopathy
CPT/HCPCS: 36415; 80051; 82565; 84520; 85027

== ENCOUNTER 2018-01-13 07:44 | Day surgery (SDC) | payer MEDICARE ==
[2018-01-09 15:41] VITALS: BMI 32.5
[~2018-01-13 07:44] MED LIST: ALPRAZolam 0.25 MG TAB PO PRN; ALPRAZolam 0.5 MG TAB PO PRN; ASPIRIN 325 MG TAB PO STA; ATORVASTATIN 80 MG TAB PO STA; NITROGLYCERIN SL TABS 0.4 MG TAB SUBLINGUAL PRN
[2018-01-13] MEDS ORDERED: SODIUM CHLORIDE 0.9% 1,000 ML in EMPTY BAG 1 BAG IV ONE (08:00)
[2018-01-13] MEDS ORDERED: SODIUM CHLORIDE 0.9% 1,000 ML IV ONE (08:21)
[2018-01-13 08:25] VITALS: PULSE 78; RESP 16; TEMP 97.8
[2018-01-13] MEDS ORDERED: fentaNYL (PF) 50 MCG/ML 2 ML AMP ONE (10:53)
[2018-01-13] MEDS ORDERED: MIDAZOLAM 2 MG/2 ML VIAL ONE (10:53)
[2018-01-13] MEDS ORDERED: MIDAZOLAM 2 MG/2 ML VIAL IV ONE (11:03)
[2018-01-13] MEDS ORDERED: fentaNYL (PF) 50 MCG/ML 2 ML AMP IV ONE (11:03)
[2018-01-13] MEDS ORDERED: LIDOCAINE 1% INJ 10MG/ML (20 ML MDV) SQ ONE (11:05)
[2018-01-13] MEDS ORDERED: IOPAMIDOL-370 125ML BTL INJ ONE (11:14)
[2018-01-13] MEDS ORDERED: RX INFO: IV CONTRAST WAS GIVEN 1 EACH MISC MISCELLANE PRN (11:25)
[2018-01-13] MEDS ORDERED: SODIUM CHLORIDE 0.9% 1,000 ML IV SCH (11:30)
--- NOTE | 2018-01-13 11:32 | P.CARDCATH ---
Date of Procedure: 01/13/18 Preoperative Diagnosis: Positive stress test, cardiomyopathy and congestive heart failure and also left bundle-branch block pattern Postoperative Diagnosis: Calcified coronary system without any occlusive obstructive disease Procedure(s) Performed: Left heart catheterization without left ventriculography Description of Procedure: HISTORY: This is a 67-year-old female who was recently admitted to the hospital with evidence of congestive heart failure and cardiomyopathy. Patient also has left bundle-branch block pattern. A nuclear stress test showed evidence of possible old anterior wall VT and also fixed defect in inferior wall. Patient is advised to have a cardiac catheterization to rule out the possibility of underlying ischemic heart disease. CONSENT:I have discussed the risks, benefits and alternative therapies for the above-mentioned procedure and for both sedation/analgesia as well as necessary blood product administration, if indicated, as they pertain to this patient. The patient has indicated understanding and acceptance of the risks and procedures discussed. [] PROCEDURE: Patient was brought to the lab in a fasting state. Patient was given some IV sedation. The right groin is infiltrated with lidocaine and right femoral artery was entered using Seldinger technique. A 6-Cuban catheter was left in place and selective coronary arteriograph was performed. Patient tolerated the procedure well. Femoral angiogram was performed and Angio -Seal was applied for hemostasis. No immediate complications were noted and patient was transferred to [facility] in a stable condition Conscious Sedation: Versed 1mg Fentanyl 50 g Duration 12minutes HEMODYNAMICS: The aortic pressure is about 110/70. Left ankle end-diastolic pressure is 8-12. There was no gradient across the aortic valve SELECTIVE CORONARY ARTERIOGRAPHY: LEFT MAIN: Normal length and patent. THE LEFT ANTERIOR DESCENDING CORONARY ARTERY: This is a fairly caliber vessel giving rise good-sized diagonal branch. There is calcification involving the proximal LAD and also left main. No obstructive disease noted THE LEFT CIRCUMFLEX AND IS CORONARY ARTERY:. This is a nondominant vessel giving rise good-sized OM branch. This is free of any significant occlusive disease except mild calcification in the proximal portion THE RIGHT CORONARY ARTERY:. This is a dominant vessel giving rise good-sized PDA and PLV. The right coronary artery and branches are free of any occlusive disease LEFT VENTRICULOGRAPHY:. Not performed FINAL IMPRESSION:, Mild calcification of the coronary system without any obstructive disease. Left ventricle end-diastolic pressure is normal. PLAN: Continue current medical therapy. Patient to be considered for BV pacemaker PROGNOSIS: Guarded
[2018-01-13 11:44] VITALS: BP 144/65
== END 2018-01-13 17:12 | disposition home or self-care (01) ==
LOC: CATHCVL 07:44
PROVIDERS: ATTEND Internal Medicine Cardiovascular Disease
DX: I25.10 Atherosclerotic heart disease of native coronary artery without angina pectoris (principal); R94.39 Abnormal result of other cardiovascular function study; I11.0 Hypertensive heart disease with heart failure; I50.22 Chronic systolic (congestive) heart failure; I44.7 Left bundle-branch block, unspecified; I42.0 Dilated cardiomyopathy; Z79.82 Long term (current) use of aspirin; Z79.899 Other long term (current) drug therapy; F17.200 Nicotine dependence, unspecified, uncomplicated
CPT/HCPCS: 93458; C1760; C1894; C1769; J2250; J2001; J3010; Q9967

== ENCOUNTER → 2018-02-25 | Outpatient (CLI) | payer MEDICARE ==
[2018-02-25 12:14] LABS: HCT 38.7 % (34.0-46.0); HGB 12.6 gm/dL (11.4-16.0); MCH 30.8 pg (25.0-35.0); MCHC 32.6 g/dL (31.0-37.0); MCV 94.3 fL (80.0-100.0); Mean Platelet Volume 7.2; Platelet Count 238 k/uL (150-450); RDW 12.3 % (11.5-15.5); WBC 7.9 k/uL (3.8-10.6)
[2018-02-25 12:23] LABS: Potassium 4.8 mmol/L (3.5-5.1)
== END | disposition home or self-care (01) ==
LOC: LABPAT 10:32
PROVIDERS: ATTEND Internal Medicine Clinical Cardiac Electrophysiology
DX: Z01.812 Encounter for preprocedural laboratory examination (principal); I42.8 Other cardiomyopathies; I44.7 Left bundle-branch block, unspecified
CPT/HCPCS: 36415; 80051; 82565; 82947; 84520; 85027

== ENCOUNTER 2018-03-03 13:07 | Day surgery (SDC) | payer MEDICARE ==
[~2018-03-03 13:07] MED LIST changes: -ALPRAZolam 0.25 MG TAB PO PRN; -ALPRAZolam 0.5 MG TAB PO PRN; -ASPIRIN 325 MG TAB PO STA; -ATORVASTATIN 80 MG TAB PO STA; -NITROGLYCERIN SL TABS 0.4 MG TAB SUBLINGUAL PRN; +SODIUM CHLORIDE 0.9% 1,000 ML IV SCH; +ceFAZolin 1,000 MG in SODIUM CHLORIDE 0.9% IRRIGATIO 250 ML IRRIGATION ONE; +ceFAZolin IN SWFI 2 GM/20 ML SYRINGE IVP ONE
[2018-03-03 14:14] VITALS: RESP 18
[2018-03-03] MEDS ORDERED: PROPOFOL 10 MG/ML 20 ML VIAL IV ONE (16:17)
[2018-03-03] MEDS ORDERED: HYDROmorphone (PF) 1 MG/ML ONE (16:17)
[2018-03-03] MEDS ORDERED: MIDAZOLAM 2 MG/2 ML VIAL ONE (16:17)
[2018-03-03] MEDS ORDERED: fentaNYL (PF) 50 MCG/ML 2 ML AMP ONE (16:17)
[2018-03-03] MEDS ORDERED: ONDANSETRON 4 MG/2 ML VIAL ONE (16:17)
[2018-03-03] MEDS ORDERED: IOPAMIDOL-250 50ML BTL IV ONE ×2 (16:34→17:35)
[2018-03-03] MEDS ORDERED: LIDOCAINE 1% INJ 10MG/ML (20 ML MDV) ONE (16:47)
[2018-03-03] MEDS ORDERED: LIDOCAINE 1% INJ 10MG/ML (20 ML MDV) SQ ONE ×2 (17:08→17:13)
[2018-03-03] MEDS ORDERED: ACETAMINOPHEN IV (For NPO) 1,000 MG in EMPTY BAG 1 BAG IVPB ONE (18:51)
[2018-03-03] MEDS ORDERED: ACETAMINOPHEN TAB 325 MG TAB PO PRN (18:51)
[2018-03-03] MEDS ORDERED: HYDROcodone/APAP 5-325MG 1 EACH TAB PO PRN (18:51)
--- NOTE | 2018-03-03 20:11 | PCN ---
PROCEDURE NOTE Lakeisha Cueva is a 67-year-old female with severe non-ischemic cardiomyopathy with ejection fraction 20%, which has not improved despite greater than 5 months of medical treatment. She has congestive heart failure, on appropriate drug treatment with left bundle branch block, QRS width was remeasured at 150 milliseconds, left bundle branch block. She is brought in for a biventricular ICD implant. The patient is brought to the EP lab in a fasting state. Written informed consent was obtained prior to the procedure. The left shoulder area was prepped and draped as per protocol. 1% lidocaine was used for local anesthesia. A 4 cm incision was made parallel to the deltopectoral groove, about 1.5 cm medial to it. The incision was carried down to the level of the pectoralis muscle. A subfascial pocket was made. Hemostasis was assured. The left axillary vein was accessed at 3 different points under fluoroscopy and via appropriately-sized introducer sheaths 3 leads were positioned. The atrial lead was a [employer] model #1944, 52 cm in length. Isoflex serial number [id number]. This was positioned in the right atrial appendage. This was a passive lead, pacing impedance 575 ohms, R-waves 4.3 mV. Pacing threshold 0.7 V at 0.5 milliseconds. 10 V test negative. The RV lead was a single coil RV lead positioned in the RV apex. R-waves 20.9 mV. Pacing impedance 658 ohms, pacing threshold 0.5 V at 0.5 milliseconds. 10 V test negative. The LV lead was positioned in the lateral vein. The patient's coronary sinus trifurcated right at the coronary sinus os with the main body, posterolateral/lateral vein middle cardiac vein. The posterolateral/lateral vein was selected. Lead was positioned. R-waves 35 mV. Pacing impedance 1064 ohms. Pacing threshold in the proximal poles 3 and 4 was 0.5 at 0.5 milliseconds. 10 V test negative. All leads secured to the underlying pectoralis fascia using 2 nonabsorbable sutures. Each pocket was irrigated with antibiotic solution. Leads were connected to the generator. ([employer] model number [id number], serial #[id number]. The lead and the generator were then placed in subfascial pocket. The wound was closed in 3 layers and dressed per protocol. The device was anchored to the pectoralis muscle. RESULTS: Successful dual-chamber biventricular ICD implantation for primary prevention of sudden cardiac and management of heart failure. PLAN: Continue IV antibiotics, for 4 more doses and continue heart failure cardiomyopathy medications. The device was then programmed to DDD and 50-130 milliseconds, 130 beats per minute. For Bi-V pacing it is on sync AV protocol. programming was programmed. The LV offset 45 milliseconds. MMODL / IJN: [id number] /
--- NOTE | 2018-03-03 20:14 | LTR ---
DATE OF SERVICE: 03/03/[address] Patel: Lakeisha Cueva underwent implantation of a biventricular ICD for management of severe non- ischemic cardiomyopathy with underlying left bundle branch block in heart failure. She will continue heart failure medications as before and will follow up with you and Dr. Moreno as before. If you have any questions, please do not hesitate to call. Sincerely, MMCATHERINEL / IJN: [id number] /
[2018-03-03] MEDS ORDERED: ONDANSETRON 4 MG/2 ML VIAL IVP PRN (20:44)
[2018-03-03] MEDS: ceFAZolin IN SWFI 2 GM/20 ML SYRINGE IVP SCH (22:51)
[2018-03-04] MEDS: ceFAZolin IN SWFI 2 GM/20 ML SYRINGE IVP SCH ×3 (05:07→17:37)
[2018-03-04] MEDS ORDERED: CARVEDILOL 6.25 MG TAB PO SCH (07:30)
--- NOTE | 2018-03-04 08:35 | P.DS ---
Providers Attending physician: Jose Diop Primary care physician: Cleveland Lianghven [facility] Course: Patient is doing well. She was sitting up at the edge of the bed. She looks comfortable minimal soakage no hematoma no pain No chest pain or undue shortness of breath dizziness or lightheadedness On examination blood pressure 117/67 mmHg normal respirations pulse rate in the 70s afebrile 97.9F Heart sounds are normal no murmurs or gallops or rub Breath sounds are clear no rhonchi no crackles no adventitious sounds Abdomen soft Extremities warm no edema Impression Severe nonischemic cardio myopathy that has not improved despite greater than 5 months off appropriate medical treatment underlying left bundle branch block QRS width of 150 ms left bundle branch block Congestive heart failure class II [place] recommended to medical treatment Status post biventricular ICD implantation yesterday The device was interrogated today and is functioning normally Chest x-ray was reviewed and is within normal limits Plan Discharge home today after completion of IV antibiotics and follow Dr. Moreno in the device clinic in 5 days Patient Condition at Discharge: Stable Plan - Discharge Summary Discharge Rx Participant: No New Discharge Prescriptions: No Action Furosemide [Lasix] 40 mg PO DAILY #30 tab Lisinopril [Zestril] 5 mg PO DAILY #30 tab Spironolactone [Aldactone] 12.5 mg PO DAILY #30 tab Aspirin 81 mg PO DAILY #100 chew Carvedilol [Coreg] 6.25 mg PO BID-W/MEALS Cholecalciferol [Vitamin D3] 1,000 unit PO DAILY Discharge Medication List Aspirin 81 mg PO DAILY #100 chew 08/05/17 [Rx] Furosemide [Lasix] 40 mg PO DAILY #30 tab 08/05/17 [Rx] Lisinopril [Zestril] 5 mg PO DAILY #30 tab 08/05/17 [Rx] Spironolactone [Aldactone] 12.5 mg PO DAILY #30 tab 08/05/17 [Rx] Carvedilol [Coreg] 6.25 mg PO BID-W/MEALS 01/09/18 [History] Cholecalciferol [Vitamin D3] 1,000 unit PO DAILY 01/09/18 [History] Follow up Appointment(s)/Referral(s): Doyle Moreno MD [STAFF PHYSICIAN] - As Needed (Device clinic follow-up in 5 days Follow-up with Dr. Moreno as previously scheduled or within the next 4 weeks) Activity/Diet/Wound Care/Special Instructions: PATIENT EDUCATION MATERIAL Instructions following a heart rhythm device implant. 1. Keep dressing DRY for 5 DAYS. You may cover the area with Saran or Cling Wrap, prior to a shower. 2. The dressing will be removed in the Device Clinic at [facility]. Absorbable sutures were used to close the wound. 3. Avoid raising the left arm above the shoulder level. 4 week restriction 4. Avoid arm movements, like backscratching, rubbing the head, or pulling on a cord. 4 weeks restriction 5. Gentle range of motion movements of the shoulder, closest to the incision should be performed to avoid a frozen shoulder. (Pendulum exercises of the shoulder) 6. The opposite arm may be used freely. 7. Avoid driving for 7 days. 8. Avoid activities such as golfing, swimming, weed whacking, lifting more than 10 pounds weight, bowling, gymnastics and weight training/lifting. (6 weeks restriction) 9. Activities such as wood chopping with an axe, pull-ups in the gymnasium, power lifting, arc-welding, being close to home induction cooktops will always be a problem. 10. Arm sling is only a reminder not to raise the arm above the head. You do not need to keep the arm completely immobilized. Your free to move the arm and use it and for normal activities. In case of any problems, please call [facility], Anthony Restrepo, @ [phone], Attention: Device Clinic Device clinic follow-up in 5 days Follow-up with primary digital field service technician in 1 month No change in medications
--- NOTE | 2018-03-04 08:42 | XR ---
EXAMINATION TYPE: XR chest 2V DATE OF EXAM: 03/04/2018 COMPARISON: Prior chest x-ray 08/02/2017 HISTORY: Lead placement check TECHNIQUE: Frontal and lateral views of the chest are obtained. FINDINGS: There is a generator has been placed in the left pectoral region, there are leads in the c oronary sinus, right ventricle, right atrium. There are overlying cardiac leads. No evident pneumotho rax or pleural effusion. Patient is rotated. Cardiac mediastinal silhouette, pulmonary vascularity an d vernell are stable. There is an underlying scoliosis. IMPRESSION: No evident complication status post defibrillator placement.
[2018-03-04] MEDS ORDERED: FUROSEMIDE 40 MG TAB PO SCH (09:00)
[2018-03-04] MEDS ORDERED: ASPIRIN 81 MG PO SCH (09:00)
[2018-03-04] MEDS ORDERED: LISINOPRIL 5 MG TAB PO SCH (09:00)
[2018-03-04] MEDS ORDERED: SPIRONOLACTONE 25 MG TAB PO SCH (09:00)
[2018-03-04 11:20] VITALS: TEMP 98.3
[2018-03-04 11:45] VITALS: BMI 32.1
[2018-03-04 15:43] VITALS: BP 146/77; PULSE 79
--- NOTE | 2018-03-05 16:08 | PN ---
PROGRESS NOTE DATE OF SERVICE: 03/04/2018. CHIEF COMPLAINT: Status post implantation of pacemaker/defibrillator. HISTORY OF PRESENT ILLNESS: This lady is doing well. She has had no shortness of breath, pain, fever and chills, etc. PHYSICAL EXAM: Chest is clear. Cardiac exam is normal. Dressing is dry. IMPRESSION: Status post implantation of ICD and pacemaker. PLAN: Home today. MMODL / IJN: [id number] /
--- NOTE | 2018-03-05 19:08 | CONS ---
CONSULTATION CHIEF COMPLAINT: Congestive heart failure. HISTORY OF PRESENT ILLNESS: This is another admission for this 67-year-old white female. She is brought in by Cardiology for an elective implantation of a pacemaker and defibrillator. This is prophylactic. She has not had any problems of late. REVIEW OF SYSTEMS: She denies chest pain, syncope, palpitations, orthopnea, PND, abdominal pain, nausea, vomiting, etc. Past medical history, family history, personal and social history can all be found in her admitting and discharge summaries. PHYSICAL EXAMINATION: Blood pressure 128/64 with a pulse of 71, respirations are 19. She is afebrile. In general, she appeared to be well developed, well nourished, no acute distress. Skin color is normal. Skin is warm and dry. Lymph nodes not enlarged. Head, ears, eyes, nose, mouth, and throat were normal. Neck veins not distended. Thyroid is not enlarged. Chest is clear. Cardiac exam is normal. Abdomen is soft, nontender. IMPRESSION: Coronary artery disease. PLAN: No change in program at this time and follow up postoperatively with Cardiology. MMODL / IJN: [id number] /
== END 2018-03-04 18:05 | disposition home or self-care (01) ==
LOC: CATHEP 13:07 → 1SOBS 18:36 → CATHEP 03-04 18:05
PROVIDERS: ATTEND Internal Medicine Clinical Cardiac Electrophysiology
DX: I42.0 Dilated cardiomyopathy (principal); I44.7 Left bundle-branch block, unspecified; I11.0 Hypertensive heart disease with heart failure; I50.23 Acute on chronic systolic (congestive) heart failure; I25.10 Atherosclerotic heart disease of native coronary artery without angina pectoris; Z00.6 Encounter for examination for normal comparison and control in clinical research program; Z79.82 Long term (current) use of aspirin; Z79.899 Other long term (current) drug therapy
CPT/HCPCS: 33225; 33249; 71046; C1769 ×4; C1892 ×2; C1730; C1900; C1898; C1777; C1882; J2250; J2405; J0690 ×3; J2001; J3010; J1170; J2704; Q9966

== ENCOUNTER → 2018-04-01 | Outpatient (CLI) | payer MEDICARE ==
[2018-04-01 16:46] LABS: Anion Gap 8.1 mmol/L (4.00-12.00); Calcium 8.9 mg/dL (8.7-10.3); Carbon Dioxide 26.9 mmol/L (21.6-31.8); Potassium 5.1 mmol/L (3.5-5.5)
== END | disposition home or self-care (01) ==
LOC: LABWHC1 08:58
PROVIDERS: ATTEND Internal Medicine Cardiovascular Disease
DX: I50.9 Heart failure, unspecified (principal)
CPT/HCPCS: 36415; 80048

== ENCOUNTER → 2018-05-19 | Outpatient (CLI) | payer MEDICARE ==
[2018-05-19 09:11] LABS: HCT 38.1 % (34.0-46.0); HGB 12.3 gm/dL (11.4-16.0); MCHC 32.1 g/dL (31.0-37.0); MCV 93.5 fL (80.0-100.0); Mean Platelet Volume 7.3; Platelet Count 215 k/uL (150-450); RBC 4.08 m/uL (3.80-5.40); RDW 13.3 % (11.5-15.5); WBC 6.3 k/uL (3.8-10.6)
== END | disposition home or self-care (01) ==
LOC: LABPAT 08:32
PROVIDERS: ATTEND Internal Medicine Clinical Cardiac Electrophysiology
DX: Z01.812 Encounter for preprocedural laboratory examination (principal); I44.7 Left bundle-branch block, unspecified; I42.8 Other cardiomyopathies
CPT/HCPCS: 36415; 80051; 82565; 82947; 84520; 85027

== ENCOUNTER → 2018-05-29 | Day surgery (SDC) | payer MEDICARE, OTHER ==
[2018-05-22 15:58] VITALS: BMI 33.3
[~2018-05-29] MED LIST changes: +LACTATED RINGERS 1,000 ML IV SCH; +LIDOCAINE 1% 20 ML VIAL (10MG/ML) FOR IV START INTRADERMA PRN; +PROPOFOL 10 MG/ML 20 ML VIAL IV ONE; -ceFAZolin 1,000 MG in SODIUM CHLORIDE 0.9% IRRIGATIO 250 ML IRRIGATION ONE; -ceFAZolin IN SWFI 2 GM/20 ML SYRINGE IVP ONE
[2018-05-29 06:56] VITALS: RESP 18; TEMP 98.1
--- NOTE | 2018-05-29 07:53 | P.PCN ---
Preoperative Diagnosis: Diagnosis Cardiomyopathy CHF Biventricular ICD interrogation and reprogramming Atrial pacing threshold 0.5 V at 0.5 ms P waves 4.1 mV acing impedance 550 ohms RV pacing threshold 1.4 V at 0.5 ms R waves 2.6 mV pacing impedance 440 ohms LV pacing threshold 1.6 V at 0.5 ms and pacing impedance of 910 ohms High-voltage impedance 35 ohms After successful DFT testing at 10 J the device was reprogrammed, MADIT RIT programming. Pacing amplitudes reprogrammed to chronic parameters Defibrillation level testing and anesthesia DC for shock was used to induce ventricular fibrillation, this was adequately and appropriately detected at least sensitivity and successfully internally defibrillated with the 10 J shock Charge time 1.5 seconds, shocking impedance 75 ohms, one drop out No post shock noise Result DFT at or below 10 J Biventricular-ICD interrogation with reprogramming
[2018-05-29 08:37] VITALS: BP 108/55; PULSE 67
== END ==
LOC: CATHEP 06:29
PROVIDERS: ATTEND Internal Medicine Clinical Cardiac Electrophysiology
DX: I11.0 Hypertensive heart disease with heart failure (principal); I50.32 Chronic diastolic (congestive) heart failure; I42.9 Cardiomyopathy, unspecified; Z95.810 Presence of automatic (implantable) cardiac defibrillator; Z79.82 Long term (current) use of aspirin; Z79.899 Other long term (current) drug therapy; I73.00 Raynaud's syndrome without gangrene
CPT/HCPCS: 93642; J2704

== ENCOUNTER → 2019-08-25 | Outpatient (CLI) | payer MEDICARE ==
[2019-08-26 16:29] LABS: Total Volume 24 Hour,Urine 950 mL
[2019-08-26 18:51] LABS: Uric Acid 24 Hour,Urine 0.25 g/24Hr (0.25-0.75)
[2019-08-26 19:32] LABS: Total Protein 24 Hour,Urine 58.9 mg/24Hr
[2019-08-27 06:31] LABS: Creatinine 24 Hour,Urine 796.1 mg/24hr (800.0-1800.0)
== END | disposition home or self-care (01) ==
LOC: LABWHC1 08-24 09:19
PROVIDERS: ATTEND Family Medicine
DX: N18.3 Chronic kidney disease, stage 3 (moderate) (principal); I10 Essential (primary) hypertension
CPT/HCPCS: 36415; 81050; 82575; 84133; 84156; 84300; 84560

== ENCOUNTER 2019-10-22 04:46 | Emergency (ER) | payer MEDICARE ==
[2019-10-22 04:59] VITALS: BP 138/69; TEMP 98
--- NOTE | 2019-10-22 05:17 | ED ---
Fall HPI - General Chief Complaint: Fall Stated Complaint: Fall, rt ankle injury Time Seen by Provider: 10/22/19 04:48 Source: patient, RN notes reviewed, old records reviewed Mode of arrival: wheelchair Limitations: no limitations - History of Present Illness Initial Comments: This is a 78-year-old female to the ER today. She presents today for evaluation of fall. Patient of fall going of sepsis morning, his last rales tripped and fell landing on her right ankle. She does have severe right ankle pain unable to bear weight. No other injuries noted. 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 Witnessed: yes, by family Place Fall Occurred: home Loss of Consciousness: none Prolonged Down Time?: no Symptoms Prior to Fall: none Location - Extremities: Right: Ankle Severity: severe Severity scale (1-10): 10 Quality: stabbing, aching Context: tripped/slipped Associated Symptoms: denies - Related Data Home Medications Medication Instructions Recorded Confirmed Cholecalciferol [Vitamin D3] 1,000 unit PO DAILY 01/09/18 05/29/18 carvediloL [Coreg] 6.25 mg PO BID-W/MEALS 01/09/18 05/29/18 Previous Rx's Medication Instructions Recorded Aspirin 81 mg PO DAILY #100 chew 08/05/17 Furosemide [Lasix] 40 mg PO DAILY #30 tab 08/05/17 Spironolactone [Aldactone] 12.5 mg PO DAILY #30 tab 08/05/17 lisinopriL [Zestril] 5 mg PO DAILY #30 tab 08/05/17 Allergies Allergy/AdvReac Type Severity Reaction Status Date / Time No Known Allergies Allergy Verified 10/22/19 04:59 Review of Systems ROS Statement: Those systems with pertinent positive or pertinent negative responses have been documented in the HPI. ROS Other: All systems not noted in ROS Statement are negative. Past Medical History Past Medical History: GERD/Reflux, Hyperlipidemia, Osteoarthritis (OA), Pneumonia Additional Past Medical History / Comment(s): see Dr Moreno H&P, frequent urination, History of Any Multi-Drug Resistant Organisms: None Reported Past Surgical History: Cholecystectomy, Orthopedic Surgery, Pacemaker, Tubal Ligation Additional Past Surgical History / Comment(s): Lt knee arthroscopy, colonoscopy. Past Anesthesia/Blood Transfusion Reactions: No Reported Reaction Past Psychological History: No Psychological Hx Reported Smoking Status: Never smoker Past Alcohol Use History: None Reported Past Drug Use History: None Reported - Past Family History Father Family Medical History: Congestive Heart Failure (CHF), Osteoarthritis (OA) Additional Family Medical History / Comment(s): Father of CHF at the age of 73 yrs. Mother Family Medical History: Congestive Heart Failure (CHF) Additional Family Medical History / Comment(s): Mother of CHF at the age of 80yrs. Sister(s) Family Medical History: Cancer, Deep Vein Thrombosis (DVT) General Exam General appearance: alert, in no apparent distress Head exam: Present: atraumatic, normocephalic, normal inspection Eye exam: Present: normal appearance, PERRL, EOMI. Absent: scleral icterus, conjunctival injection, periorbital swelling ENT exam: Present: normal exam, mucous membranes moist Neck exam: Present: normal inspection. Absent: tenderness, meningismus, lymphadenopathy Respiratory exam: Present: normal lung sounds bilaterally. Absent: respiratory distress, wheezes, rales, rhonchi, stridor Cardiovascular Exam: Present: regular rate, normal rhythm, normal heart sounds. Absent: systolic murmur, diastolic murmur, rubs, gallop, clicks GI/Abdominal exam: Present: soft, normal bowel sounds. Absent: distended, tenderness, guarding, rebound, rigid Extremities exam: Present: normal inspection, full ROM, normal capillary refill, other (Right ankle has significant swelling and tenderness, dorsalis pedis posterior tibialis pulses +2 good capillary refill). Absent: tenderness, pedal edema, joint swelling, calf tenderness Back exam: Present: normal inspection Neurological exam: Present: alert, oriented X3, CN II-XII intact Psychiatric exam: Present: normal affect, normal mood Skin exam: Present: warm, dry, intact, normal color. Absent: rash Course Vital Signs 10/22/19 04:57 Temperature 98 F Pulse Rate 77 Respiratory 18 Rate Blood Pressure 138/69 O2 Sat by Pulse 97 Oximetry - Reevaluation(s) Reevaluation #1: 10/22/19 06:07 medical records reviewed Reevaluation #2: 10/22/19 06:07 Patient informed of results, placed in sling urged to be nonweightbearing Reevaluation #3: 10/22/19 06:08 Patient requiring any significant pain medication Medical Decision Making - Medical Decision Making 68 female DF status post fall right ankle fracture, patient presented splint and can be discharged home to follow-up with orthopedics - Radiology Data Radiology results: report reviewed (X-ray right ankle does show bimalleolar fracture with displacement), image reviewed Disposition Clinical Impression: Fall, Bimalleolar ankle fracture, Displaced fracture of right talus Disposition: HOME SELF-CARE Condition: Good Instructions (If sedation given, give patient instructions): Ankle Fracture (ED) Is patient prescribed a controlled substance at d/c from ED?: No Referrals: Cleveland Patel MD [Primary Care Provider] - 1-2 days Philippe Benitez MD [STAFF PHYSICIAN] - 1-2 days
--- NOTE | 2019-10-22 05:37 | XR ---
EXAMINATION TYPE: XR ankle complete RT DATE OF EXAM: 10/22/2019 COMPARISON: NONE HISTORY: Pain. Fall. TECHNIQUE: 3 views FINDINGS: There is a comminuted fracture of the distal shaft of the fibula without significant displa cement. There is transverse fracture of the medial malleolus with lateral displacement of the distal fragment. There is lateral displacement of the talus. Displacement is 1 cm. The talus appears intact. There is plantar calcaneal spurring. IMPRESSION: There is bimalleolar fracture of the right ankle with lateral displacement of the talus.
[2019-10-22] MEDS ORDERED: traMADol 50 MG STARTER PACK 3 TAB BTL PO STA (06:23)
[2019-10-22] MEDS ORDERED: traMADol 50 MG TAB PO STA (06:23)
[2019-10-22 06:41] VITALS: PULSE 74; RESP 16
== END 2019-10-22 06:31 | disposition home or self-care (01) ==
LOC: EC 04:46
DX: S82.841A Displaced bimalleolar fracture of right lower leg, initial encounter for closed fracture (principal); S92.101A Unspecified fracture of right talus, initial encounter for closed fracture; Z87.39 Personal history of other diseases of the musculoskeletal system and connective tissue; Z95.0 Presence of cardiac pacemaker; Z79.899 Other long term (current) drug therapy; W01.0XXA Fall on same level from slipping, tripping and stumbling without subsequent striking against object, initial encounter; Y92.009 Unspecified place in unspecified non-institutional (private) residence as the place of occurrence of the external cause
CPT/HCPCS: 99284

== ENCOUNTER 2019-11-02 08:06 | Day surgery (SDC) | payer MEDICARE ==
[2019-10-28 11:00] VITALS: BMI 34.9
[~2019-11-02 08:06] MED LIST changes: +DEXAMETHASONE SOD PHOSPHATE 10 MG/ML 1 ML VIAL IV ONE; -LACTATED RINGERS 1,000 ML IV SCH; +LIDOCAINE 1% (10MG/ML) FOR IV START INTRADERMA PRN; -LIDOCAINE 1% 20 ML VIAL (10MG/ML) FOR IV START INTRADERMA PRN; -PROPOFOL 10 MG/ML 20 ML VIAL IV ONE; -SODIUM CHLORIDE 0.9% 1,000 ML IV SCH; +fentaNYL (PF) 50 MCG/ML 2 ML AMP IV PRN
[2019-11-02 08:43] VITALS: TEMP 97
[2019-11-02] MEDS: LACTATED RINGERS 1,000 ML IV SCH ×2 (09:05→11:13)
[2019-11-02] MEDS ORDERED: DEXAMETHASONE SOD PHOSPHATE 10 MG/ML 1 ML VIAL IV ONE (09:08)
[2019-11-02] MEDS: MIDAZOLAM 2 MG/2 ML VIAL IV PRN ×2 (10:44→10:48)
--- NOTE | 2019-11-02 11:22 | P.PN ---
Progress Note - Text Progress Note Date: 11/02/19 This is a 68yo female who was scheduled for ORIF of the right ankle today. Evaluation in preop revealed a large fracture blister about the medial aspect of the ankle. It was decided to postpone surgery a couple of days. The patient was given 2mg of Versed and 50mg of Fentanyl IV by the PACU nurse. The blister was punctured and evactuated. She was then placed in a short leg splint. The patient tolerated the procedure well. She is rescheduled for Saturday11/04/2019. Her prescription for Tramadol is refilled.
[2019-11-02 11:30] VITALS: BP 121/64; PULSE 88; RESP 20
== END 2019-11-02 11:20 | disposition home or self-care (01) ==
LOC: OR 08:06
PROVIDERS: ATTEND Orthopaedic Surgery
DX: S82.841A Displaced bimalleolar fracture of right lower leg, initial encounter for closed fracture (principal); Z53.09 Procedure and treatment not carried out because of other contraindication; M19.071 Primary osteoarthritis, right ankle and foot; I11.0 Hypertensive heart disease with heart failure; I50.22 Chronic systolic (congestive) heart failure; I44.7 Left bundle-branch block, unspecified; I42.8 Other cardiomyopathies; Z79.01 Long term (current) use of anticoagulants; Z79.82 Long term (current) use of aspirin; Z79.891 Long term (current) use of opiate analgesic; Z79.899 Other long term (current) drug therapy; Z86.718 Personal history of other venous thrombosis and embolism; Z90.49 Acquired absence of other specified parts of digestive tract; Z95.810 Presence of automatic (implantable) cardiac defibrillator; Z98.51 Tubal ligation status; Z98.890 Other specified postprocedural states; Z82.49 Family history of ischemic heart disease and other diseases of the circulatory system; W10.9XXA Fall (on) (from) unspecified stairs and steps, initial encounter; Y92.009 Unspecified place in unspecified non-institutional (private) residence as the place of occurrence of the external cause
CPT/HCPCS: 84132; J2250; J1100; J3010

== ENCOUNTER 2019-11-04 11:55 | Day surgery (SDC) | payer MEDICARE ==
[2019-11-03 12:37] VITALS: BMI 34.9
[~2019-11-04 11:55] MED LIST changes: +LACTATED RINGERS 1,000 ML IV SCH; -LIDOCAINE 1% (10MG/ML) FOR IV START INTRADERMA PRN; +MIDAZOLAM 2 MG/2 ML VIAL IV PRN; +ONDANSETRON 4 MG/2 ML VIAL IVP ONE; -fentaNYL (PF) 50 MCG/ML 2 ML AMP IV PRN
[2019-11-04] MEDS ORDERED: ONDANSETRON 4 MG/2 ML VIAL ONE (12:31)
[2019-11-04] MEDS ORDERED: LIDOCAINE 1% (10MG/ML) FOR IV START INTRADERMA ONE (12:37)
[2019-11-04] MEDS ORDERED: PROPOFOL 10 MG/ML 20 ML VIAL IV ONE (13:45)
[2019-11-04] MEDS ORDERED: LIDOCAINE 1% INJ 10MG/ML (20 ML MDV) ONE (13:45)
[2019-11-04] MEDS ORDERED: SUCCINYLCHOLINE CHLORIDE 100 MG/5 ML SYR IV ONE (13:45)
[2019-11-04] MEDS ORDERED: ROCURONIUM BROMIDE 10 MG/ML 5 ML VIAL IV ONE (13:45)
[2019-11-04] MEDS ORDERED: ROPIVACAINE 5 MG/ML 30 ML VIAL ONE (13:45)
[2019-11-04] MEDS ORDERED: HYDROmorphone (PF) 1 MG/ML ONE (13:45)
[2019-11-04] MEDS ORDERED: fentaNYL (PF) 50 MCG/ML 2 ML AMP ONE (13:45)
[2019-11-04] MEDS ORDERED: PHENYLEPHRINE-0.9% NACL SYG 1 MG/10 ML SYRINGE ONE (13:45)
--- NOTE | 2019-11-04 14:09 | P.ANPRN ---
Procedure Note - Anesthesia - Nerve Block Performed Right Other (see comment) Single Time Out Performed: Yes ([id number]) Date of Procedure: 11/04/19 Procedure Start Time: 13:28 Procedure Stop Time: 13:49 Location of Patient: PreOp Indication: Acute Post-Operative Pain, Analgesia, Requested by Surgeon Specifically requested for management of pain by DrJose Armando: Philippe Benitez Sedation Type: Sedate with meaningful contact maintained Preparation: Sterile Prep, Sterile Dressing Position: Supine Catheter: None Needle Types: Touhy Needle Gauge: 20 Ultrasound used to visualize needle placement: Yes Ultrasound used to observe medication spread: Yes Injectate: Other (see comment) (Popliteal and adductor block each had 15 cc (5 cc lidocaine 1% and 10 cc ropivacaine 0.5%)) Blood Aspirated: No Pain Paresthesia on Injection Noted: No Resistance on Injection: Normal Image Stored and Saved: Yes Events: Other (see comment) (Right sciatic nerve block (popliteal approach) and right adductor canal block)
[2019-11-04] MEDS ORDERED: ceFAZolin 1,000 MG in SODIUM CHLORIDE 0.9% 1,000 ML IRRIGATION ONE (14:14)
[2019-11-04] MEDS ORDERED: BACITRACIN 50,000 UNIT VIAL TOPICAL ONE ×2 (15:19→15:55)
--- NOTE | 2019-11-04 15:48 | P.OP ---
Date of Procedure: 11/04/19 Procedure(s) Performed: PREOPERATIVE DIAGNOSES: 1. Right ankle lateral and medial malleolus fracture, Boss C bimalleolar fracture POSTOPERATIVE DIAGNOSES: 1. Right ankle lateral and medial malleolus fracture, Boss C bimalleolar fracture; 2. Severe osteoporosis PROCEDURES PERFORMED: 1. Right ankle lateral malleolus fracture open reduction and internal fixation. 2. Right ankle medial malleolus fracture open reduction and internal fixation 3. Syndesmotic fixation using 2 [employer] tight rope devices ANESTHESIA: impregnating machine operator: Maureen Amato PA-C (assistance with exposure, hemostasis, retraction, fixation, closure, dressing, splint) COMPLICATIONS: None ESTIMATED BLOOD LOSS: Less than 10 mL. TOURNIQUET: approximately 100 minutes DISPOSITION: To post-anesthesia care unit INDICATIONS: The patient is a 69-year-old female, who presents to the operating room today for fixation of ankle fracture. The fracture is a bimalleolar fracture, with a fracture of the lateral malleolus that is high enough to produce talar instability. I have discussed these issues with the patient, who wishes to proceed with the operative plan. I have explained the details of this surgery thoroughly and also explained the potential risks and complications. These are inclusive of, but not limited to: bleeding, infection, scarring, discomfort, blood vessel and nerve damage, stiffness, weakness, need for further surgery, failure to relieve symptoms, persistence or worsening of problems, tucker th, and other risks. The patient is aware of these risks and agrees to proceed with surgery. The consent form has been signed. PROCEDURE: After appropriate consent was obtained, the patient was taken to the operating room and placed supine on the operating table. General anesthesia was initiated. The ankle was removed from the splint and examined for any signs of significant fracture blisters or swelling that would prevent continuation of the surgery. Skin appeared healthy and intact, swellling was moderate but not excessive. Fracture blister on the medial aspect of the ankle had healed and the skin appeared healthy and pink. The limb was prepped and draped in the usual aseptic fashion with ChloraPrep, and the patient was given IV antibiotics. The tourniquet was then inflated to 350 mmHg after careful exsanguination of the limb. Time out was called, confirming patient identity, side, procedure, and administration of antibiotics. Incision was created laterally, centered over the fracture site, for a length of approximately 4 inches. The incision was carried down through skin and into subcutaneous tissues, and blunt dissection then proceeded down to fascia. Fascia was split in line with the incision and the peroneal muscles were retracted posteriorly. The fracture site was exposed with subperiosteal dissection for as much exposure of the bone as was necessary. Fracture hematoma was evacuated and the interior of the fracture site was meticulously cleansed with irrigation and manual extraction of organizing hematoma and bone debris. The fracture was early comminuted and oblique in orientation. Severe osteoporosis was noted. The fracture was mobilized using a green elevator and reduction was accomplished using several bone clamps, which were also used to secure the fracture. Anatomic reduction was accomplished as judged by C-arm imaging. An interfragmentary screw, anterior to posterior, was placed using lag technique. However, it was found to be unstable and the patient's osteoporotic bone and was removed. Next, a precontoured fibular plate from [employer] was selected for size and side. The proximal holes were filled with fully threaded 3.5 mm cortical screws. Distal holes were filled with 5 2.7 mm locking screws. No evidence of joint penetration on the mini-C-arm views was noted. Next, the medial malleolus was evaluated and treated. An incision was created for approximately 1.5 inches on the medial aspect of the ankle, and carried down through skin sharply and then bluntly using a dissecting scissor down to fascia and periosteum. The fracture fragment was able to be mobilized and secured with a [id number] reduction forceps. Subsequently, a guidepin was placed across the fracture site and several adjustments were made of this guidepin so that the position was perfect on C-arm imaging. The outer cortex was reamed, and an appropriately sized 4.0 cannulated cancellous screw with long threads were inserted over the guidepin until it was fully deployed. Final C-arm images were then taken, showing anatomic alignment of the mortise and medial malleolar fracture site. The mortise appeared to be still slightly wide once the medial and lateral malleoli were fixed; therefore, tightrope devices were employed to reduce and fixate the syndesmosis. A pointer reduction forcep was used to apply mild to moderate pressure across the syndesmosis until the syndesmosis was in anatomic alignment on x-rays. Subsequent, 2 tightrope devices were drilled and inserted through the screw holes corresponding with the area just above the tibial plafond. The button was deployed, and the tight rope was tightened down to the plate. Once the 2 tightropes Jensen deployed, the ankle had excellent stability with normal flexion and extension of the ankle and no significant lateral talar shift with stress. The fracture was noted to be in anatomic position and stress testing under C-arm imaging showed no significant migration, shift, or tilt of the talus with external rotation stress, hindfoot inversion or eversion. Screw lengths were noted to be appropriate and the incision was then irrigated thoroughly using normal saline. Tourniquet was deflated and hemostasis was obtained using electrocautery. Fascial closure was performed with 0-Vicryl suture, subcutaneous closure with 2-0 Vicryl suture. Skin was closed with augustin. Sterile dressing was applied and well padded, well molded short leg splint was applied with the ankle in neutral. Patient tolerated the procedure well and taken to recovery room in stable condition. Sponge and needle counts were correct.
--- NOTE | 2019-11-04 16:20 | FL ---
EXAMINATION TYPE: FL guidance operating room, XR ankle complete RT DATE OF EXAM: 11/04/2019 COMPARISON: Right ankle radiograph 10/22/2019 HISTORY: Right ankle fracture fixation TECHNIQUE: Fluoroscopy. FINDINGS: Fluoroscopic guidance was provided during procedure for performing physician. A total of 2 7 seconds of fluoroscopic time was utilized during the procedure and 2 spot images was acquired. Plea se see operative report for additional details. IMPRESSION: As Above.
[2019-11-04] MEDS: HYDROmorphone 0.5 MG/0.5 ML SYRINGE IVP PRN ×4 (16:24→17:17)
[2019-11-04] MEDS ORDERED: LACTATED RINGERS 1,000 ML IV ONE (17:10)
[2019-11-04 17:15] VITALS: TEMP 97.7
[2019-11-04 17:21] VITALS: RESP 16
[2019-11-04 17:55] VITALS: BP 164/77; PULSE 103
--- NOTE | 2019-11-11 08:58 | CDI ---
Date: 11.11.2019 CDS/Mortgage Underwriter Name: Ling Winters Phone: If any questions, call [facility] at [phone] Patient Name: Lakeisha Cueva Admit Date 11.04.19 Discharge Date: 11.04.19 ATTENTION: The [facility] Coding Staff appreciate your assistance in clarifying documentation. Please respond to the clarification below the line at the bottom and electronically sign. The [facility] Coding staff will review the response and follow-up if needed. Please note: Queries are made part of the Legal Health Record. If you have any questions, please contact the [employer]. Dear Dr. Benitez This pt suffered a bimalleolar fx when she fell down her stairs at home, in your OP report you have document pt has severe Osteoporosis. Please document whether the fracture is traumatic or related to osteoporosis. Thank you for your kind consideration. Her fracture was directly caused by trauma but made more severe by her osteoporosis. This was not an insufficiency fracture directly caused by her osteoporosis. SURY
== END 2019-11-04 18:07 | disposition home or self-care (01) ==
LOC: OR 11:55
PROVIDERS: ATTEND Orthopaedic Surgery
DX: S82.841A Displaced bimalleolar fracture of right lower leg, initial encounter for closed fracture (principal); S93.491A Sprain of other ligament of right ankle, initial encounter; M81.0 Age-related osteoporosis without current pathological fracture; M19.071 Primary osteoarthritis, right ankle and foot; I11.0 Hypertensive heart disease with heart failure; E78.5 Hyperlipidemia, unspecified; K08.89 Other specified disorders of teeth and supporting structures; I50.9 Heart failure, unspecified; Z79.82 Long term (current) use of aspirin; Z79.01 Long term (current) use of anticoagulants; Z79.899 Other long term (current) drug therapy; Z79.891 Long term (current) use of opiate analgesic; Z97.3 Presence of spectacles and contact lenses; Z90.49 Acquired absence of other specified parts of digestive tract; Z98.890 Other specified postprocedural states; Z95.810 Presence of automatic (implantable) cardiac defibrillator; Z98.51 Tubal ligation status; Z82.49 Family history of ischemic heart disease and other diseases of the circulatory system; W10.9XXA Fall (on) (from) unspecified stairs and steps, initial encounter; Y92.019 Unspecified place in single-family (private) house as the place of occurrence of the external cause
CPT/HCPCS: 27814; 27829; 64447; 64450; 76942; 73610; C1713 ×2; J2250; J1100; J0690 ×2; J2405; J2001; J3010; J1170 ×2; J2795; J2370; J0330; J2704; 64445

== ENCOUNTER → 2020-08-29 | Outpatient (CLI) | payer MEDICARE ==
[2020-08-29 18:48] LABS: Albumin 4.1 g/dL (3.80-4.90); Albumin/Globulin Ratio 1.41 (1.60-3.17); BUN/Creat Ratio 26.88 Ratio (12.00-20.00); Calcium 8.7 mg/dL (8.7-10.3); Chol/HDL Ratio 3.05; Globulin 2.9 g/dL (1.6-3.3); LDL Cholesterol,Calculated 67.2 mg/dL (0.0-131.0); Non-African American GFR(CKD) 32.8 (60.0-200.0); Potassium 5.1 mmol/L (3.5-5.5); Total Bilirubin 0.2 mg/dL (0.3-1.2); VLDL Calculation 20.8 mg/dL (5.00-40.00)
== END | disposition home or self-care (01) ==
LOC: LABWHC1 07:30
PROVIDERS: ATTEND Internal Medicine Cardiovascular Disease
DX: E78.5 Hyperlipidemia, unspecified (principal); I50.9 Heart failure, unspecified
CPT/HCPCS: 36415; 80053; 80061; 83735

== ENCOUNTER 2020-12-23 10:56 | Inpatient (IN) | payer MEDICARE ==
[~2020-12-23 10:56] MED LIST changes: -DEXAMETHASONE SOD PHOSPHATE 10 MG/ML 1 ML VIAL IV ONE; -LACTATED RINGERS 1,000 ML IV SCH; +LIDOCAINE 1% (10MG/ML) FOR IV START INTRADERMA PRN; -MIDAZOLAM 2 MG/2 ML VIAL IV PRN; +fentaNYL (PF) 50 MCG/ML 2 ML AMP IV PRN
[2020-12-23] MEDS: LACTATED RINGERS 1,000 ML IV SCH (11:38)
[2020-12-23] MEDS ORDERED: DEXAMETHASONE SOD PHOSPHATE 4 MG/ML 1 ML VIAL IVP ONE (11:39)
[2020-12-23] MEDS ORDERED: MIDAZOLAM 2 MG/2 ML VIAL IVP ONE (12:01)
--- NOTE | 2020-12-23 12:58 | P.ANPRN ---
Procedure Note - Anesthesia - Nerve Block Performed Right Popliteal Single Time Out Performed: Yes Date of Procedure: 12/23/20 Procedure Start Time: 12:00 Procedure Stop Time: 12:08 Location of Patient: PreOp Indication: Acute Post-Operative Pain, Requested by Surgeon Sedation Type: Sedate with meaningful contact maintained Preparation: Sterile Prep, Sterile Dressing Position: Left Lateral Catheter: None Needle Types: On-Q Needle Gauge: 20 Ultrasound used to visualize needle placement: Yes Ultrasound used to observe medication spread: Yes Injectate: 0.5% Ropivacaine (see comment for volume) (20 ml + decadron 4 mg) Blood Aspirated: No Pain Paresthesia on Injection Noted: No Resistance on Injection: Normal Image Stored and Saved: Yes Events: Uneventful and Well Tolerated
[2020-12-23] MEDS ORDERED: fentaNYL (PF) 50 MCG/ML 2 ML AMP ONE (13:10)
[2020-12-23] MEDS ORDERED: PROPOFOL 10 MG/ML 20 ML VIAL IV ONE (13:10)
[2020-12-23] MEDS ORDERED: DEXAMETHASONE SOD PHOSPHATE 4 MG/ML 1 ML VIAL ONE (13:10)
[2020-12-23] MEDS ORDERED: WATER FOR INJECTION, STERILE 10 ML VIAL IV ONE (13:10)
[2020-12-23] MEDS ORDERED: ROPIVACAINE 5 MG/ML 30 ML VIAL ONE (13:10)
[2020-12-23] MEDS ORDERED: LIDOCAINE 1% INJ 10MG/ML (20 ML MDV) ONE (13:10)
[2020-12-23] MEDS ORDERED: ePHEDrine SULFATE/0.9% NACL/PF 50 MG/5 ML SYRINGE IV ONE (13:10)
[2020-12-23] MEDS ORDERED: MIDAZOLAM 2 MG/2 ML VIAL ONE (13:10)
[2020-12-23] MEDS ORDERED: ceFAZolin 1,000 MG in SODIUM CHLORIDE 0.9% 1,000 ML IRRIGATION ONE (13:35)
[2020-12-23] MEDS ORDERED: LACTATED RINGERS 1,000 ML IV ONE (13:45)
[2020-12-23] MEDS ORDERED: ONDANSETRON 4 MG/2 ML VIAL IVP PRN (14:49)
[2020-12-23] MEDS ORDERED: SENNOSIDES-DOCUSATE SODIUM 1 EACH TAB PO PRN (14:49)
[2020-12-23 17:17] LABS: Basophils % (A) 0 %; Eosinophils % (A) 0 %; HCT 35.7 % (34.0-46.0); HGB 10.9 gm/dL (11.4-16.0); Hypochromasia Slight; Lymphocytes # (A) 0.7 k/uL (1.0-4.8); Lymphocytes % (A) 9 %; MCH 29.6 pg (25.0-35.0); MCHC 30.4 g/dL (31.0-37.0); MCV 97.3 fL (80.0-100.0); Mean Platelet Volume 7.5; Monocytes # (A) 0.1 k/uL (0-1.0); Monocytes % (A) 2 %; Neutrophils # (A) 7.1 k/uL (1.3-7.7); Neutrophils % (A) 89 %; Platelet Count 275 k/uL (150-450); RBC 3.67 m/uL (3.80-5.40); RDW 14.8 % (11.5-15.5)
[2020-12-23 17:40] LABS: C Reactive Protein 0.5 mg/dL (<1.0); Calcium 9.1 mg/dL (8.4-10.2); Potassium 5.5 mmol/L (3.5-5.1)
[2020-12-23 17:59] LABS: Erythrocyte Sedimentation Rate 58 mm/hr (0-20)
[2020-12-23] MEDS ORDERED: ASPIRIN 81 MG PO SCH (21:00)
--- NOTE | 2020-12-23 23:10 | P.CONS ---
History of Present Illness - Reason for Consult Consult date: 12/23/20 right ankle infection Requesting physician: Philippe Benitez - Chief Complaint right ankle wound x weeks - History of Present Illness History of present illness : Patient is 70-year female with a past medical history significant for right ankle fracture September 2019 after the patient did have a fall have the patient is status post ORIF of the right ankle fracture patient subsequently seemed to have a problem with a nonhealing of the wound to the right ankle area she has been treated with multiple courses of antibiotics including doxycycline and Bactrim DS patient mention that she did have some improvement however those antibiotic however after antibiotics were done she did have worsening of the wound patient was sent to the wound care center for local wound care however with hardware exposed she was sent back to the orthopedic surgeon patient was taken back to the OR today and the patient is status post removal of the hardware culture has been obtained patient has been started on cefazolin 2 g every 12 for infection was consulted for further management of antibiotic therapy and review of the microbiological data here at this hospital no cultures, patient was complaining of some dull aching pain to the right ankle area intensity 5-6 out of 10, no radiation with associated swelling redness no foul-smelling drainage no Review of system: CONSTITUTIONAL: Positive for weakness however denies fever. EYES: No complaint. ENT: No complaint. RESPIRATORY: No complaint. CARDIOVASCULAR: No complaint. GENITOURINARY: No complaint. GASTROINTESTINAL: No complaint. MUSCULOSKELETAL: As per history of present illness. INTEGUMENTARY: As per history of present illness. PSYCHOLOGIC: No complaint. ENDOCRINE: No complaint. NEUROLOGIC: No complaint. Past medical history : Reviewed, documented below Past surgical history : Reviewed, documented below Social history: Reviewed, documented below Medications: Reviewed, as documented below EXAMINATION: Vital sigans= Reviewed and documented below GENERAL DESCRIPTION: Elderly female lying in bed, no distress. No tachypnea or accessory muscle of respiration use. HEENT: Shows Pallor , no scleral icterus. Oral mucous membrane is dry. NECK: Trachea central, no thyromegaly. LUNGS: Unlabored breathing. Clear to auscultation anteriorly. No wheeze or crackle. HEART: S1, S2, regular rate and rhythm. ABDOMEN: Soft, no tenderness , guarding or rigidity EXTREMITIES: Right ankle is currently dressing over dressing no drainage on the dressing SKIN: No rash, no masses palpable. NEUROLOGICAL: The patient is awake, alert, oriented x3, mood and affect normal. LABS AND RADIOLOGY: Reviewed results see below Assessment : 1-Patient admitted to hospital for removal of infected hardware from the right ankle area in this patient who did have a history of right ankle fracture in September 2019 status post operative repair in this patient fails respond to the outpatient oral antibiotic therapy 2-patient with renal insufficiency and high risk of nephrotoxicity from vancomycin Plan: 1-we will obtain blood culture CBC BMP CRP and a sed rate 2-cefazolin 2 g every 8 hours 3-gentle IV fluid We will follow on clinical condition and cultures to further adjust medication if needed Thank you for this consultation we will follow the patient along with you Past Medical History Past Medical History: Heart Failure, Hyperlipidemia, Hypertension, Osteoarthritis (OA) Additional Past Medical History / Comment(s): Chronic systolic CHF, Lt BBB, has bi-Ventricular AICD ([facility] [facility]). Frequent urination, History of Any Multi-Drug Resistant Organisms: None Reported Past Surgical History: AICD, Cholecystectomy, Orthopedic Surgery, Pacemaker, Tubal Ligation Additional Past Surgical History / Comment(s): Left knee arthroscopy, colonoscopy. [facility] bi-Ventricular AICD. ORIF RT ANKLE WITH HARDWARE Past Anesthesia/Blood Transfusion Reactions: No Reported Reaction Type of Cardiac Device: AICD Device Placement Date:: 03-03-2018 Smoking Status: Never smoker - Past Family History Father Additional Family Medical History / Comment(s): Father of CHF at the age of 73 yrs. Mother Additional Family Medical History / Comment(s): Mother of CHF at the age of 80yrs. Sister(s) Family Medical History: Cancer, Deep Vein Thrombosis (DVT) Medications and Allergies Home Medications Medication Instructions Recorded Confirmed Type Aspirin 81 mg PO DAILY #100 chew 08/05/17 12/23/20 Rx Furosemide [Lasix] 40 mg PO DAILY #30 tab 08/05/17 12/23/20 Rx Apixaban [Eliquis] 5 mg PO BID 10/28/19 12/23/20 History Atorvastatin [Lipitor] 80 mg PO DAILY 12/20/20 12/23/20 History Calcium Carbonate/Vitamin D3 1 each PO BID 12/20/20 12/23/20 History [Calcium 500-Vit D3 5 Mcg (200 Iu)] Doxycycline [Vibramycin] 100 mg PO BID 12/20/20 12/23/20 History Sulfamethox-Tmp 800-160Mg [Bactrim 1 tab PO Q12HR 12/20/20 12/23/20 History DS 800-160 mg] carvediloL 25 mg PO BID 12/20/20 12/23/20 History lisinopriL 40 mg PO DAILY 12/20/20 12/23/20 History Allergies Allergy/AdvReac Type Severity Reaction Status Date / Time No Known Allergies Allergy Verified 12/20/20 15:52 Physical Exam Vitals: Vital Signs Temp Pulse Pulse Resp BP Pulse Ox 12/23/20 15:15 62 16 130/60 95 12/23/20 15:03 64 16 116/58 96 12/23/20 14:49 70 16 129/58 98 12/23/20 14:31 68 16 114/54 97 12/23/20 14:19 97.0 F L 70 16 116/55 96 12/23/20 11:32 96.7 F L 72 16 120/59 97 Intake and Output 12/23/20 12/23/20 12/23/20 06:59 14:59 22:59 Intake Total 1151 Output Total 20 Balance 1131 Intake: IV 1151 Output: Estimated Blood Loss 20 Other: Weight 84 kg Results CBC & Chem 7: 12/23/20 16:55 12/23/20 16:55
[2020-12-24] MEDS: LACTATED RINGERS 1,000 ML IV SCH (05:57)
[2020-12-24] MEDS: APIXABAN 5 MG TAB PO SCH ×2 (08:42→20:43)
--- NOTE | 2020-12-24 08:56 | P.PN ---
Subjective Progress Note Date: 12/24/20 Principal diagnosis: Status post right ankle infected hardware removal This is a 70 year-old female post right ankle infected hardware removal with wound vac application. This is post-op day 1. The patient was evaluated at the bedside today. The patient denies nausea, vomiting, abdominal pain, shortness of breath, and chest pain this morning. She states her pain is controlled at this time. The patient has been up to the bathroom with a walker. She states her foot is still numb. She was seen by Dr. Green and she is currently receiving cefazolin. Objective - Vital Signs Vital signs: Vital Signs Temp 97.8 F 12/24/20 00:55 Pulse 78 12/24/20 00:55 Resp 18 12/24/20 00:55 BP 169/70 12/24/20 00:55 Pulse Ox 98 12/24/20 00:55 Intake & Output 12/23/20 12/24/20 12/24/20 18:59 06:59 18:59 Intake Total 1251 Output Total 20 Balance 1231 Weight 84 kg Intake: IV 1251 Output: Estimated Blood Loss 20 Other: # Voids 2 - Exam The patient does not appear in acute distress. Alert and orientated x3. Dressing is clean dry and intact. Wound vac in place without drainage in the tubing. Calf is soft and nontender. Good foot and ankle motion without difficulty. The foot is still numb from the regional block. Circulatory status is intact. - Labs CBC & Chem 7: 12/23/20 16:55 12/23/20 16:55 Labs: Abnormal Lab Results - Last 24 Hours (Table) 12/23/20 12/23/20 Range/Units 16:55 16:55 RBC 3.67 L (3.80-5.40) m/uL Hgb 10.9 L (11.4-16.0) gm/dL MCHC 30.4 L (31.0-37.0) g/dL Lymphocytes # 0.7 L (1.0-4.8) k/uL ESR 58 H (0-20) mm/hr Sodium 134 L (137-145) mmol/L Potassium 5.5 H (3.5-5.1) mmol/L Carbon Dioxide 21 L (22-30) mmol/L BUN 46 H (7-17) mg/dL Creatinine 1.80 H (0.52-1.04) mg/dL Glucose 130 H (74-99) mg/dL Microbiology - Last 24 Hours (Table) 12/23/20 13:33 Wound Culture - Preliminary Ankle - Right 12/23/20 13:33 Anaerobic Culture - Preliminary Ankle - Right 12/23/20 13:33 Anaerobic Culture - Preliminary Ankle - Right 12/23/20 13:33 Wound Culture - Preliminary Ankle - Right Assessment and Plan (1) Status post hardware removal Current Visit: Yes Status: Acute Code(s): Z98.890 - OTHER SPECIFIED POSTPROCEDURAL STATES SNOMED Code(s): 218834231 (2) Right ankle pain Current Visit: Yes Status: Acute Code(s): M25.571 - PAIN IN RIGHT ANKLE AND JOINTS OF RIGHT FOOT SNOMED Code(s): 190872050 Plan: 1. Continue pain control 2. Anticoagulation with Eliquis and Aspirin 3. Continue 50% weightbearing with walker 4. Anticipate discharge home on Saturday after cultures are back and antibiotics can be decided by ID.
[2020-12-24] MEDS ORDERED: ASPIRIN 81 MG PO SCH (09:00)
[2020-12-24] MEDS: carvediloL 12.5 MG TAB PO SCH ×2 (12:25→20:12)
[2020-12-24] MEDS: lisinopriL 20 MG TAB PO SCH (12:25)
[2020-12-24] MEDS: FUROSEMIDE 40 MG TAB PO SCH (12:25)
--- NOTE | 2020-12-24 17:57 | PN ---
PROGRESS NOTE DATE OF SERVICE: 12/24/2020 REASON FOR FOLLOWUP: Right ankle infected hardware/osteomyelitis. INTERVAL HISTORY: The patient is afebrile. The patient is breathing comfortably. Denies having any chest pain or shortness of breath or cough. No abdominal pain. Pain to the right leg area is currently controlled. PHYSICAL EXAMINATION: Blood pressure is 97/65, pulse of 71, temperature is 97.7. She is 96% on room air. GENERAL DESCRIPTION: General description is an elderly female up in the bed in no distress. RESPIRATORY SYSTEM: Unlabored breathing. Clear to auscultation anteriorly. HEART: S1, S2. Regular rate and rhythm. ABDOMEN: Soft. No tenderness. Right ankle is currently dressed. No obvious drainage on the dressing. LABS: Hemoglobin is 10.9, white count 8.0. BUN of 46, creatinine 1.80. Cultures are currently pending. DIAGNOSTIC IMPRESSION AND PLAN: Patient with right ankle infection with infected hardware, status post removal of the hardware. Plan at this time is to continue with cefazolin. Discharge antibiotic on the basis of cultures. Continue supportive care. MMODL / IJN: [id number] /
[2020-12-24] MEDS: HYDROcodone/APAP 5-325MG 1 EACH TAB PO PRN (20:07)
[2020-12-25] MEDS: LACTATED RINGERS 1,000 ML IV SCH (01:14)
--- NOTE | 2020-12-25 09:14 | P.PN ---
Subjective Progress Note Date: 12/25/20 Principal diagnosis: Status post right ankle infected hardware removal This is a 70 year-old female post right ankle infected hardware removal with wound vac application. This is post-op day 2. The patient was evaluated at the bedside today. The patient denies nausea, vomiting, abdominal pain, shortness of breath, and chest pain this morning. She states her pain is controlled at this time. The patient has been up to the bathroom with a walker. She states her foot is still numb. She was seen by Dr. Green and she is currently receiving cefazolin. One culture is resulting Staph aureus preliminarily. Objective - Vital Signs Vital signs: Vital Signs Temp 97.7 F 12/25/20 08:28 Pulse 82 12/25/20 08:28 Resp 20 12/25/20 08:28 BP 122/65 12/25/20 08:28 Pulse Ox 97 12/25/20 08:28 Intake & Output 12/24/20 12/25/20 12/25/20 18:59 06:59 18:59 Other: # Voids 2 2 - Exam The patient does not appear in acute distress. Alert and orientated x3. Dressing is clean dry and intact. Wound vac in place with minimal serosanginous drainage in the tubing. Calf is soft and nontender. Good foot and ankle motion without difficulty. The foot is still numb from the regional block. Circulatory status is intact. - Labs CBC & Chem 7: 12/23/20 16:55 12/23/20 16:55 Labs: Microbiology - Last 24 Hours (Table) 12/23/20 13:33 Gram Stain - Preliminary Ankle - Right Wound Culture - Preliminary Presumptive Staph aureus 12/23/20 16:55 Blood Culture - Preliminary Blood No Growth after 24 hours 12/23/20 13:33 Gram Stain - Preliminary Ankle - Right Wound Culture - Preliminary Assessment and Plan (1) Status post hardware removal Current Visit: Yes Status: Acute Code(s): Z98.890 - OTHER SPECIFIED POSTPROCEDURAL STATES SNOMED Code(s): 309466752 (2) Right ankle pain Current Visit: Yes Status: Acute Code(s): M25.571 - PAIN IN RIGHT ANKLE AND JOINTS OF RIGHT FOOT SNOMED Code(s): 118556398 Plan: 1. Continue pain control 2. Anticoagulation with Eliquis and Aspirin 3. Continue 50% weightbearing with walker 4. Anticipate discharge home on Saturday after cultures are back and antibiotics can be decided by ID.
[2020-12-25] MEDS: carvediloL 12.5 MG TAB PO SCH ×2 (09:22→20:06)
[2020-12-25] MEDS: ASPIRIN 81 MG PO SCH (09:22)
[2020-12-25] MEDS: FUROSEMIDE 40 MG TAB PO SCH (09:23)
[2020-12-25] MEDS: APIXABAN 5 MG TAB PO SCH ×2 (10:05→20:06)
[2020-12-25] MEDS: lisinopriL 20 MG TAB PO SCH (14:06)
--- NOTE | 2020-12-25 16:37 | PN ---
PROGRESS NOTE DATE OF SERVICE: 12/25/2020 REASON FOR FOLLOWUP: Right ankle infected hardware and concern for underlying osteomyelitis. INTERVAL HISTORY: Patient is afebrile. Patient is breathing comfortably. Denies having any chest pain, shortness of breath or cough. No abdominal pain. No pain to the right ankle area. PHYSICAL EXAMINATION: Blood pressure 100/61 with a pulse of 75, temperature is 10.6. She is 98% on room air. General description is an elderly female lying in bed in no distress. Respiratory system unlabored breathing. Clear to auscultation anteriorly. Heart S1, S2. Regular rate and rhythm. Abdomen soft, no tenderness. Right ankle is currently dressed. No obvious drainage on the dressing. LABS: Blood culture negative. Cultures from the ankle showing presumptive Staph aureus. DIAGNOSTIC IMPRESSION AND PLAN: Patient with right ankle infected hardware, concern for underlying osteomyelitis. She is covered with cefazolin. Plan is to get a PICC line for outpatient IV antibiotics. Continue supportive care. MMODL / IJN: [id number] /
[2020-12-25] MEDS: HYDROcodone/APAP 5-325MG 1 EACH TAB PO PRN (23:22)
[2020-12-26 06:23] LABS: Basophils % (A) 0 %; Eosinophils # (A) 0.1 k/uL (0-0.7); Eosinophils % (A) 1 %; HCT 33.9 % (34.0-46.0); HGB 10.2 gm/dL (11.4-16.0); Hypochromasia Moderate; Lymphocytes # (A) 2.6 k/uL (1.0-4.8); Lymphocytes % (A) 29 %; MCH 29.7 pg (25.0-35.0); Macrocytosis Slight; Mean Platelet Volume 7.5; Monocytes # (A) 0.6 k/uL (0-1.0); Monocytes % (A) 7 %; Neutrophils # (A) 5.3 k/uL (1.3-7.7); Neutrophils % (A) 61 %; Platelet Count 269 k/uL (150-450); RBC 3.42 m/uL (3.80-5.40); WBC 8.7 k/uL (3.8-10.6)
[2020-12-26 06:48] LABS: African American GFR (CKD) 36 (>60 ml/min/1.73 sqM); Anion Gap 5 mmol/L; Blood Urea Nitrogen 62 mg/dL (7-17); Calcium 8.8 mg/dL (8.4-10.2); Carbon Dioxide 28 mmol/L (22-30); Chloride 106 mmol/L (98-107); Glucose 95 mg/dL (74-99); Non-African American GFR(CKD) 31 (>60 ml/min/1.73 sqM); Potassium 5.5 mmol/L (3.5-5.1); Sodium 139 mmol/L (137-145)
[2020-12-26 07:00] LABS: C Reactive Protein <0.5 mg/dL (<1.0)
[2020-12-26] MEDS: LACTATED RINGERS 1,000 ML IV SCH ×2 (08:06→20:26)
[2020-12-26] MEDS: carvediloL 12.5 MG TAB PO SCH ×2 (08:26→20:17)
[2020-12-26] MEDS: lisinopriL 20 MG TAB PO SCH (08:26)
[2020-12-26] MEDS: FUROSEMIDE 40 MG TAB PO SCH (08:27)
[2020-12-26 08:36] LABS: Erythrocyte Sedimentation Rate 23 mm/hr (0-20)
--- NOTE | 2020-12-26 09:07 | P.PN ---
Subjective Progress Note Date: 12/26/20 Principal diagnosis: Status post removal hardware right ankle. Infection right ankle. This is a 70 year-old female post right ankle infected hardware removal with wound vac application. This is post-op day 3. The patient was evaluated at the bedside today. The patient denies nausea, vomiting, abdominal pain, shortness of breath, and chest pain this morning. She states her pain is controlled at this time. The patient has been up to the bathroom with a walker. She states her foot is still numb. She was seen by Dr. Green and she is currently receiving cefazolin. One culture is resulting Staph aureus preliminarily. Vital signs and labs are stable. Her BUN/creatinine and creatinine are elevated. A consult for nephrology has been placed. Objective - Vital Signs Vital signs: Vital Signs Temp 97.8 F 12/26/20 02:20 Pulse 71 12/26/20 02:20 Resp 18 12/26/20 02:20 BP 105/68 12/26/20 02:20 Pulse Ox 97 12/26/20 02:20 Intake & Output 12/25/20 12/26/20 12/26/20 18:59 06:59 18:59 Intake Total 180 Balance 180 Intake: Oral 180 Other: Voiding Method Toilet # Voids 1 1 1 - Exam This is a pleasant 70-year-old female in no acute distress. She is alert and oriented 3. Exam of the right ankle reveals the prevena wound VAC in place. No surrounding erythema. Minimal soft tissue swelling about the ankle. The foot and ankle motion without difficulty or pain. Neurovascular status to the right lower extremity is intact. - Labs CBC & Chem 7: 12/26/20 05:32 12/26/20 05:32 Labs: Abnormal Lab Results - Last 24 Hours (Table) 12/26/20 12/26/20 Range/Units 05:32 05:32 RBC 3.42 L (3.80-5.40) m/uL Hgb 10.2 L (11.4-16.0) gm/dL Hct 33.9 L (34.0-46.0) % MCHC 30.0 L (31.0-37.0) g/dL ESR 23 H (0-20) mm/hr Potassium 5.5 H (3.5-5.1) mmol/L BUN 62 H (7-17) mg/dL Creatinine 1.66 H (0.52-1.04) mg/dL Microbiology - Last 24 Hours (Table) 12/23/20 13:33 Gram Stain - Final Ankle - Right Wound Culture - Final Staphylococcus aureus 12/23/20 13:33 Gram Stain - Preliminary Ankle - Right Wound Culture - Preliminary Presumptive Staph aureus 12/23/20 16:55 Blood Culture - Preliminary Blood No Growth after 48 hours 12/23/20 13:33 Anaerobic Culture - Preliminary Ankle - Right Assessment and Plan (1) Infection of bone of right ankle Current Visit: Yes Status: Acute Code(s): M86.9 - OSTEOMYELITIS, UNSPECIFIED SNOMED Code(s): 626984043 (2) Right ankle pain Current Visit: Yes Status: Acute Code(s): M25.571 - PAIN IN RIGHT ANKLE AND JOINTS OF RIGHT FOOT SNOMED Code(s): 527093987 (3) Status post hardware removal Current Visit: Yes Status: Acute Code(s): Z98.890 - OTHER SPECIFIED POSTPROCEDURAL STATES SNOMED Code(s): 742804082 Plan: The clinical findings are discussed with the patient. We are awaiting final cul tures. Awaiting PICC line placement. Continued care.
[2020-12-26] MEDS: HYDROcodone/APAP 5-325MG 1 EACH TAB PO PRN (10:45)
[2020-12-26] MEDS ORDERED: LIDOCAINE 1% INJ 10MG/ML (20 ML MDV) SQ ONE (11:11)
[2020-12-26] MEDS: APIXABAN 5 MG TAB PO SCH ×2 (11:52→23:54)
[2020-12-26] MEDS: ASPIRIN 81 MG PO SCH (11:52)
--- NOTE | 2020-12-26 13:11 | IR ---
EXAMINATION TYPE: IR cvc insert >=5 years DATE OF EXAM: 12/26/2020 COMPARISON: NONE CLINICAL HISTORY: Infection Needs long-term intravenous access for antibiotics. PROCEDURE: Hand hygiene obtained with soap and water and alcohol-based hand rub. After informed consent, the skin overlying the right basilic vein was localized with ultrasound and n oted to be compressible and patent. An ultrasound image was obtained and submitted on the patient's chart. The overlying skin was prepped and draped and Lidocaine was used for local anesthesia. A ski n zamzam was made with a scalpel. Access was gained to the vein under ultrasound guidance with a 21 ga uge needle and a 0.018 inch wire was advanced. Access site was dilated with Peel-Away sheath and cat heter tailored to the appropriate length and advanced such that the distal tip is at the cavoatrial j unction. Spot image was obtained verifying placement. Catheter was fixed to the skin and a sterile dressing was placed following hemostasis. Catheter was aspirated and flushed with saline. Patient w as discharged in stable condition without complication.Maximal barrier technique is utilized. Ultras ound image is documented on the chart. Ultrasound used with sterile technique. Fluoro time and fluoroscopic images submitted to document procedure: 59 intraoperative C-arm images, 0.2 minutes fluoroscopy time IMPRESSION: STATUS POST ULTRASOUND AND FLUOROSCOPIC GUIDED PICC LINE PLACEMENT, READY FOR USE. THIS PROCEDURE WAS PERFORMED BY THE UNDERSIGNED.
[2020-12-26 18:35] LABS: Appearance,Urine Clear (Clear); Bacteria,Urine Rare /hpf; Bilirubin,Urine Negative (Negative); Blood,Urine Negative (Negative); Color,Urine Light Yellow; Glucose,Urine (UA) Negative (Negative); Ketones,Urine Negative (Negative); Leukocyte Esterase,Urine Large (Negative); Mucus,Urine Rare /hpf; Nitrite,Urine Negative (Negative); Protein,Urine Negative (Negative); RBC,Urine 3 /hpf (0-5); Specific Gravity,Urine 1.013 (1.001-1.035); Squamous Epithelial Cell,Urine 3 /hpf (0-4); Urobilinogen,Urine <2.0 mg/dL (<2.0); WBC,Urine 8 /hpf (0-5)
--- NOTE | 2020-12-27 03:30 | US ---
EXAMINATION TYPE: US kidneys/renal and bladder DATE OF EXAM: 12/26/2020 COMPARISON: 10/10/2017 CLINICAL HISTORY: RF. Renal failure EXAM MEASUREMENTS: Right Kidney: 8.1 x 3.3 x 3.1 cm Left Kidney: 10.0 x 5.6 x 5.0 cm Right Kidney: Much smaller in size when compared to previous, appeared atrophic Left Kidney: wnl, lower pole gassed out Bladder: wnl Bilateral Jets seen: No There is no evidence for hydronephrosis at this point in time. No nephrolithiasis is seen. No abigail s are identified. The urinary bladder is anechoic. Bilateral ureteral jets are seen. IMPRESSION: There is bilateral renal atrophy and more severe on the right side. There is progression of atrophy o n the right side compared to old exam. Right kidney is decreased from 10 cm to 8 cm. No evidence of renal obstruction.
[2020-12-27] MEDS ORDERED: lisinopriL 5 MG TAB PO SCH (09:00)
[2020-12-27] MEDS: carvediloL 12.5 MG TAB PO SCH (09:10)
[2020-12-27] MEDS: FUROSEMIDE 40 MG TAB PO SCH (09:10)
[2020-12-27] MEDS: APIXABAN 5 MG TAB PO SCH (09:10)
[2020-12-27] MEDS: ASPIRIN 81 MG PO SCH (09:10)
[2020-12-27] MEDS: HYDROcodone/APAP 5-325MG 1 EACH TAB PO PRN (09:17)
[2020-12-27 10:45] LABS: Calcium 8.7 mg/dL (8.4-10.2); Potassium 5.2 mmol/L (3.5-5.1)
--- NOTE | 2020-12-27 11:29 | P.DS ---
Providers Date of admission: 12/26/20 13:26 Attending physician: Philippe Benitez Consults: 12/23/20 14:49 Consult Physician Routine Consulting Provider: Jennifer Green Consult Reason/Comments: post right ankle hardware removal with open wound to lateral aspect of ankl Do you want consulting provider notified?: Yes 12/23/20 14:57 Consult Physician Routine Consulting Provider: Cleveland Patel Consult Reason/Comments: medical management Do you want consulting provider notified?: Yes 12/26/20 07:54 Consult Physician Routine Consulting Provider: Tia Bacon Consult Reason/Comments: gfr <45 needs picc line placed. Do you want consulting provider notified?: Already Contacted Primary care physician: Cleveland Patel - Discharge Diagnosis(es) (1) Infection of bone of right ankle Current Visit: Yes Status: Acute (2) Right ankle pain Current Visit: Yes Status: Acute (3) Status post hardware removal Current Visit: Yes Status: Acute Hospital Course: This is a 70-year-old female who was admitted to the hospital on 12/23/2020 for management of a right ankle wound. Patient underwent ORIF and syndesmotic fixation of the right ankle on 11/04/2019. Patient was seen and evaluated as an outpatient for management of the right ankle open wound by Dr. Benitez. Patient is admitted to [facility] on 12/23/2020 for right ankle infected hardware removal with wound VAC application.. Patient now has a PICC line in place and IV antibiotics are being managed by infectious disease. Cultures are positive for staph aureus. Patient was also evaluated by nephrology during this hospital stay. Labs and vital signs are stable on day of discharge. Patient is seen and evaluated at bedside today. Patient states that her pain is well controlled and she denies any new complaints today. Wound VAC in place. Per nursing, there has been minimal drainage. Sensation intact. Calf is soft and nontender to palpation. Neurovascular status to the right lower extremity is intact. Patient is discharged home in good condition. Please see med rec for accurate list of home medications. Plan - Discharge Summary Discharge Rx Participant: Yes New Discharge Prescriptions: New Sennosides [Senokot] 2 tab PO DAILY PRN #60 tablet PRN Reason: Constipation ceFAZolin [Kefzol] 2 gm IVP Q8HR #114 each HYDROcodone/APAP 5-325MG [[place] 5-325] 1 - 2 tab PO Q6HR PRN #30 tab PRN Reason: Pain Discontinued Sulfamethox-Tmp 800-160Mg [Bactrim DS 800-160 mg] 1 tab PO Q12HR No Action Furosemide [Lasix] 40 mg PO DAILY #30 tab Aspirin 81 mg PO DAILY #100 chew Apixaban [Eliquis] 5 mg PO BID Doxycycline [Vibramycin] 100 mg PO BID carvediloL 25 mg PO BID Calcium Carbonate/Vitamin D3 [Calcium 500-Vit D3 5 Mcg (200 Iu)] 1 each PO BID Atorvastatin [Lipitor] 80 mg PO DAILY lisinopriL 40 mg PO DAILY Discharge Medication List Aspirin 81 mg PO DAILY #100 chew 08/05/17 [Rx] Furosemide [Lasix] 40 mg PO DAILY #30 tab 08/05/17 [Rx] Apixaban [Eliquis] 5 mg PO BID 10/28/19 [History] Atorvastatin [Lipitor] 80 mg PO DAILY 12/20/20 [History] Calcium Carbonate/Vitamin D3 [Calcium 500-Vit D3 5 Mcg (200 Iu)] 1 each PO BID 12/20/20 [History] Doxycycline [Vibramycin] 100 mg PO BID 12/20/20 [History] carvediloL 25 mg PO BID 12/20/20 [History] lisinopriL 40 mg PO DAILY 12/20/20 [History] ceFAZolin [Kefzol] 2 gm IVP Q8HR #114 each 12/26/20 [Rx] HYDROcodone/APAP 5-325MG [[place] 5-325] 1 - 2 tab PO Q6HR PRN #30 tab 12/27/20 [Rx] Sennosides [Senokot] 2 tab PO DAILY PRN #60 tablet 12/27/20 [Rx] Follow up Appointment(s)/Referral(s): [facility], [NON-STAFF] - 12/28/20 [facility], [REFERRING] - 12/28/20 Philippe Benitez MD [STAFF PHYSICIAN] - 1 Week [facility] [NON-STAFF] - As Needed (Supplier of Walker ) Jennifer Green MD [STAFF PHYSICIAN] - 1 Week Ambulatory/Diagnostic Orders: Basic Metabolic Panel [LAB.AMB] Location: None Selected C Reactive Protein [LAB.AMB] Location: None Selected Complete Blood Count w/diff [LAB.AMB] Location: None Selected Erythrocyte Sedimentation Rate [LAB.AMB] Location: None Selected Discharge Disposition: HOME WITH HOME HEALTH SERVICES
--- NOTE | 2020-12-27 11:34 | PN ---
PROGRESS NOTE DATE OF SERVICE: 12/25/2020 CHIEF COMPLAINT: Status post removal of hardware from right ankle. HISTORY OF PRESENT ILLNESS: This lady is comfortable and she is having no issues. The pain is not significant. She has had no chills or fever. PHYSICAL EXAMINATION: Chest is clear. Cardiac exam is normal. Abdomen is soft, nontender. Foot is normal with no drainage to the dressing and toes are well perfused. IMPRESSION: Status post removal of ankle hardware from the right ankle which appears to be infected. PLAN: She expects to go home tomorrow. She thinks she is going home on long-term oral antibiotics. It was explained to her that there is a possibility that she will have to be on long-term IV antibiotics. MMODL / IJN: [id number] /
--- NOTE | 2020-12-27 11:34 | CONS ---
CONSULTATION CHIEF COMPLAINT: Pain and swelling in the right ankle with previous fixation device and secondary infection. HISTORY OF PRESENT ILLNESS: This 70-year-old white female was brought in for removal of hardware in her right ankle which may be infected. REVIEW OF SYSTEMS: She has had no headaches, neurologic problems, difficulty with the vision or the hearing, chest pain, palpitations, abdominal pain, nausea, vomiting, hematemesis, melena, hematochezia, jaundice, hepatitis, renal failure, frequency, urgency, incontinence, etc. Past medical history, family history, and personal and social histories can all be found in detail in her admitting notes. PHYSICAL EXAMINATION: Blood pressure is 135/64 with a pulse of 71, respirations of 13. She is afebrile. In general she appeared to be well developed, well nourished, in no acute distress. Skin color is normal. Skin is warm and dry. Lymph nodes are not enlarged. Head, ears, eyes, nose, mouth and throat are normal. Neck veins are not distended. Thyroid is not enlarged. Chest is clear. Cardiac exam is normal. Abdomen is soft and nontender. Extremities are normal except for the right ankle, which is elevated on a pillow and wrapped with a dressing. Capillary fill in the feet is normal. IMPRESSION: Possibly infected fixation hardware in the right ankle. RECOMMENDATIONS: None of this time. Follow, should she have any further medical issues. Thank you. Respectfully, Cleveland Patel II, M.D. WILIAN / JAVED: [id number] /
--- NOTE | 2020-12-27 11:34 | PN ---
PROGRESS NOTE DATE OF SERVICE: 12/24/2020 CHIEF COMPLAINT: Status post removal of an infected metallic foreign body in the right ankle. HISTORY OF PRESENT ILLNESS: This lady is comfortable and she has not had any significant pain. She has had no fever or chills. PHYSICAL EXAMINATION: Vital signs are normal. Chest is clear. Cardiac exam is normal. The foot is normal with good capillary fill. IMPRESSION: Status post removal of infected orthopedic hardware from the right ankle. PLAN: Continue to monitor her otherwise. She is doing well and expects to go home Saturday. MMODL / IJN: [id number] /
--- NOTE | 2020-12-27 11:34 | PN ---
PROGRESS NOTE DATE OF SERVICE: 12/26/2020 CHIEF COMPLAINT: Infected fixation device of the right ankle. HISTORY OF PRESENT ILLNESS: This lady is doing well. She has been afebrile and doing well. It looks as though she is now scheduled for a PICC line before discharge. PHYSICAL EXAMINATION: She is afebrile. Chest is clear. Cardiac exam is normal. Abdomen is soft, nontender. IMPRESSION: Status post removal of infected fixation device of the right ankle. PLAN: PICC line for long-term antibiotics. MMODL / IJN: [id number] /
--- NOTE | 2020-12-27 11:34 | CONS ---
CONSULTATION REASON FOR CONSULT: Renal failure. HISTORY OF PRESENT ILLNESS: Patient is a 70-year-old female who was admitted to the hospital on 12/23/2020 for removal of hardware from the right ankle. Patient had ORIF of a right ankle fracture about a year ago. She has had multiple wound infections with nonhealing wound and subsequently was noticed to have exposure of hardware and therefore it was removed on 12/23/2020. During her admission, it is noted that her serum creatinine was 1.8 mg/dL on 12/23 and it came down to 1.6 on 12/26. Previous creatinine has been about 1.4 to 1.6 mg/dL. Patient is also mildly hyperkalemic with potassium at about 5.5. Review of medications shows patient is maintained on lisinopril 40 mg daily. As outpatient she was most recently on Bactrim, which was started about two days prior to admission. Patient states she has been voiding well. Blood pressure has been on the lower side, with systolic noted at 84 and 89 mmHg later on today, but earlier around 105 mmHg. PAST MEDICAL HISTORY: Significant for hypertension, hyperlipidemia, osteoarthritis, chronic systolic CHF, biventricular AICD, left bundle branch block, osteoarthritis. PAST SURGICAL HISTORY: AICD placement, cholecystectomy, right ankle fracture, multiple wound infections, pacemaker placement, tubal ligation, left knee arthroscopy, colonoscopy. SOCIAL HISTORY: Negative for smoking, drug abuse or alcohol abuse. MEDICATIONS: Medications prior to admission included aspirin, Lasix, Eliquis, Lipitor, Tums, Vibramycin, Bactrim, carvedilol, lisinopril. ALLERGIES: NONE. REVIEW OF SYSTEMS: As per HPI. Other systems negative. PHYSICAL EXAMINATION: On examination, patient is comfortable, awake, not in any acute distress. Alert, oriented x3. Blood pressure was 120/80 earlier today; later on 84/52, heart rate of 73 per minute. She is afebrile. EXAMINATION OF THE HEART: S1 and S2. EXAMINATION OF LUNGS: Bilateral breath sounds are heard. Abdomen is soft, non-tender. Examination of lower extremities shows no significant edema. SAIL LAY OUT WORKER EXAM: Grossly intact. LABS: Labs show sodium 139, potassium 5.5, chloride 106, BUN 62, serum creatinine 1.6. ASSESSMENT: 1. Acute kidney injury, most likely prerenal associated with some degree of hypotension and hypoperfusion. Creatinine can also be elevated from recent use of Bactrim prior to admission, which causes increased serum creatinine levels with decreased secretion in the urine. In the meantime, the lisinopril will be decreased since blood pressure is low. Currently patient is nonoliguric. I will check an ultrasound to rule out any urine retention/hydronephrosis. 2. Hyperkalemia associated with acute kidney injury. Rule out urine retention. Also associated with use of Bactrim, which can cause hyperkalemia. 3. Chronic kidney disease. Previous creatinine noted to be 1.4 to 1.6 mg/dL. Previous UA showed trace protein in 2018. We do not have any recent urinalysis. [id number] urine protein in 2019 was 58.9 mg. 4. Right ankle chronic nonhealing wound with exposure of hardware, status post removal of hardware, maintained on antibiotics, being followed by ID. 5. History of congestive heart failure, systolic. Ejection fraction not available. On a recent echocardiogram, however, echocardiogram from 2018 showed ejection fraction of less than 20%. PLAN: Discontinue lisinopril, as blood pressure is staying low, around 105 mmHg systolic, but later on today her systolic blood pressure was noted to be 84. Therefore I will completely discontinue the lisinopril. I will check a urinalysis and check ultrasound of the kidneys. Patient is maintained on oral Lasix, which we can continue. Continue off of the Bactrim as well. Maintain low-potassium diet and repeat labs in a.m. Thank you for this consultation. Will continue to follow the patient with you during her hospitalization. MMODL / IJN: [id number] /
--- NOTE | 2020-12-27 11:35 | PN ---
PROGRESS NOTE DATE OF SERVICE: 12/26/2020 REASON FOR FOLLOWUP: Right ankle infected hardware and possible osteomyelitis. INTERVAL HISTORY: The patient is afebrile. The patient is breathing comfortably. The patient denies having any chest pain, shortness of breath or cough. No abdominal pain or any worsening pain to the right ankle area. PHYSICAL EXAMINATION: Her blood pressure is 106/64, pulse of 83, temperature 97.9. She is 96% on room air. General description is an elderly female lying in bed in no distress. RESPIRATORY SYSTEM: Unlabored breathing. Clear to auscultation anteriorly. HEART: S1, S2. Regular rate and rhythm. ABDOMEN: Soft. No tenderness. Right inguinal wound is currently dressed. No obvious drainage on the dressing. LABS: Local culture with MSSA. Blood culture has been negative. DIAGNOSTIC IMPRESSION AND PLAN: Patient with right ankle infected hardware and concern for underlying osteomyelitis, failing outpatient oral antibiotic therapy, status post removal of the hardware. Patient is covered with cefepime. Plan at this time is for cefazolin 2 grams q.8 hours to finish a total 6-week course of therapy and close outpatient followup. Continue supportive care. MMODL / IJN: [id number] /
[2020-12-27 14:07] VITALS: BP 101/64; PULSE 88; RESP 20; TEMP 98.4
--- NOTE | 2020-12-27 14:11 | PN ---
PROGRESS NOTE DATE OF SERVICE: 12/27/2020 REASON FOR FOLLOWUP: Right ankle infected hardware secondary to MSSA anaerobes. INTERVAL HISTORY: The patient is afebrile. The patient is currently breathing comfortably. The patient denies having any chest pain, shortness of breath or cough. No abdominal pain. Pain to the right leg is currently controlled. PHYSICAL EXAMINATION: Blood pressure is 129/75, pulse of 86, temperature 97.9. She is 97% on room air. General description is an elderly female lying in bed in no distress. RESPIRATORY SYSTEM: Unlabored breathing. Clear to auscultation anteriorly. HEART: S1, S2. Regular rate and rhythm. ABDOMEN: Soft. No tenderness. Right leg is currently dressed. No obvious drainage on the dressing. LABS: Wound culture now showing anaerobes in addition to the Staph aureus. DIAGNOSTIC IMPRESSION AND PLAN: Patient with right ankle infected hardware, status post removal of the hardware. Local culture with MSSA. Blood culture negative. Plan is for cefazolin 2 grams q.8 hours along with oral Flagyl 500 q.8 for a total of 6 weeks with close outpatient followup. Continue supportive care. MMODL / IJN: [id number] /
[2020-12-27 15:07] VITALS: BMI 33.8
--- NOTE | 2020-12-27 18:04 | PN ---
PROGRESS NOTE Patient is seen for followup for acute kidney injury, hyperkalemia. Renal function has improved. Patient's lisinopril was decreased yesterday, as blood pressure had been staying on the lower side. In fact, it was discontinued. Today patient states that her ankle is feeling better. She wants to go home. On examination today, blood pressure 129/75, heart rate 86 per minute. She is afebrile. EXAMINATION OF THE HEART: S1 and S2. EXAMINATION OF LUNGS: Bilateral breath sounds are heard. Abdomen is soft, non-tender. Examination of lower extremities shows no significant edema. CLEANER AND PREPARER EXAM: Grossly intact. Labs show sodium 139, potassium 5.2, chloride 106, BUN 47, serum creatinine 1.3. UA is fairly benign. ASSESSMENT: 1. Acute kidney injury associated with hypotension in setting of use of JANES inhibitors, currently improved. Continue off of lisinopril for now. I would avoid further use of Bactrim. Ultrasound of the kidneys shows no evidence of hydronephrosis. Kidneys are on the smaller side, with right renal atrophy noted with right kidney measured at 8 cm. 2. Peripheral vascular disease with possible underlying renovascular disease as well resulting in atrophy of the right kidney. Use of JANES inhibitors will need to be monitored closely as outpatient to monitor acute kidney injury and hyperkalemia. 3. Right ankle wound, status post surgery and removal of hardware. 4. Hyperkalemia associated with acute kidney injury and use of JANES inhibitors, currently improved. PLAN: Continue to hold off on JANES inhibitors. Continue to avoid NSAIDs and maintain low- potassium diet for the next few days. Avoid use of Bactrim and repeat labs in about 4- 5 days post discharge. Follow up as outpatient in about 1-2 weeks. MMODL / IJN: [id number] /
--- NOTE | 2020-12-28 10:23 | PN ---
PROGRESS NOTE DATE OF SERVICE: 12/27/2020. CHIEF COMPLAINT: Status post removal of infected hardware from the right ankle. HISTORY OF PRESENT ILLNESS: This lady is doing well, has remained stable and awaits a PICC line for home IV antibiotics. PHYSICAL EXAMINATION: She is afebrile. Chest is clear. Cardiac exam is normal. Abdomen is soft, nontender. IMPRESSION: Status post removal of infected hardware from right ankle. PLAN: Home once her PICC line is placed. MMODL / IJN: [id number] /
== END 2020-12-27 15:54 | disposition home health service (06) | DRG 560 ==
LOC: OR 10:56 → 6PED 14:19 → OR 12-24 13:55 → 6PED 12-24 13:55 → OBSVTOIN 12-26 13:26
PROVIDERS: ADMIT Orthopaedic Surgery; ATTEND Orthopaedic Surgery
PROC: B5181ZA Fluoroscopy of Superior Vena Cava using Low Osmolar Contrast, Guidance (ICD-10-PCS; 2020-12-26)
PROC: B548ZZA Ultrasonography of Superior Vena Cava, Guidance (ICD-10-PCS; 2020-12-26)
PROC: 02HV33Z Insertion of Infusion Device into Superior Vena Cava, Percutaneous Approach (ICD-10-PCS; principal; 2020-12-26 09:55)
DX: T84.629A Infection and inflammatory reaction due to internal fixation device of unspecified bone of leg, initial encounter (principal); M86.8X7 Other osteomyelitis, ankle and foot; I13.0 Hypertensive heart and chronic kidney disease with heart failure and stage 1 through stage 4 chronic kidney disease, or unspecified chronic kidney disease; I50.22 Chronic systolic (congestive) heart failure; N17.9 Acute kidney failure, unspecified; I25.10 Atherosclerotic heart disease of native coronary artery without angina pectoris; Z20.822 Contact with and (suspected) exposure to COVID-19; E78.5 Hyperlipidemia, unspecified; E87.5 Hyperkalemia; I73.9 Peripheral vascular disease, unspecified; N18.9 Chronic kidney disease, unspecified; Y83.1 Surgical operation with implant of artificial internal device as the cause of abnormal reaction of the patient, or of later complication, without mention of misadventure at the time of the procedure; Z79.01 Long term (current) use of anticoagulants; Z79.82 Long term (current) use of aspirin; Z79.899 Other long term (current) drug therapy; Z95.0 Presence of cardiac pacemaker; Z95.810 Presence of automatic (implantable) cardiac defibrillator; Z98.51 Tubal ligation status
CPT/HCPCS: 36573; 64445; 76770; 76942; 80048; 81001; 85025; 85652; 86140; 87040; 87070; 87075; 87077; 87186; 87205; 87635; 88305

== ENCOUNTER 2021-08-22 16:00 | Emergency (ER) | payer MEDICARE ==
[2021-08-22 16:16] VITALS: BP 153/72; PULSE 79; RESP 18; TEMP 98.6
--- NOTE | 2021-08-22 16:32 | XR ---
EXAMINATION TYPE: XR hand complete LT DATE OF EXAM: 08/22/2021 CLINICAL HISTORY: Lifting injury with pain TECHNIQUE: Frontal, lateral and oblique images of the left hand are obtained. COMPARISON: None. FINDINGS: There is no acute fracture/dislocation evident in the left hand. The joint spaces in the l eft hand show mild to moderate narrowing throughout the PIP and DIP joints of the phalanges. There is metallic hook in the palmar soft tissue at level of the proximal metaphysis fourth distal phalanx. N o bony penetration identified. IMPRESSION: As above.
[2021-08-22] MEDS ORDERED: LIDOCAINE 1% INJ 10MG/ML (5 ML VIAL-PF) SQ ONE (18:02)
[2021-08-22] MEDS ORDERED: CEPHALEXIN 500MG STARTER PACK 4 CAP BTL PO STA (18:17)
[2021-08-22] MEDS ORDERED: DIPH,PERTUS(ACELL)TETVAC-LF 0.5 ML VIAL IM ONE (18:18)
--- NOTE | 2021-08-22 18:22 | ED ---
Upper Extremity HPI - General Chief Complaint: Extremity Injury, Upper Stated Complaint: Foreign object stuck in right hand Time Seen by Provider: 08/22/21 18:02 Source: patient Mode of arrival: ambulatory Limitations: no limitations - History of Present Illness Initial Comments: This is a pleasant 70-year-old female presents in respiratory getting a fishhook embedded in the distal aspect of the left fourth finger. She was cleaning up fishing gear from her front porch. When she picked up a pole somehow a look at her finger. He spent in the for about 2 hours. She did make an attempt at home which was febrile. Last tetanus unknown. No other injuries. No headache, no fever or chills, no changes in vision or hearing, no sore throat or difficulty with speech, no neck pain, no chest pain or shortness of breath, no abdominal pain, no nausea or vomiting, no changes in urination or bowel movements, no numbness or tingling, no skin rashes or lesions. MD Complaint: Injury to:: left, finger (Fourth finger) - Related Data Home Medications Medication Instructions Recorded Confirmed Apixaban [Eliquis] 5 mg PO BID 10/28/19 12/23/20 Atorvastatin [Lipitor] 80 mg PO DAILY 12/20/20 12/23/20 Calcium Carbonate/Vitamin D3 1 each PO BID 12/20/20 12/23/20 [Calcium 500-Vit D3 5 Mcg (200 Iu)] Doxycycline [Vibramycin] 100 mg PO BID 12/20/20 12/23/20 carvediloL 25 mg PO BID 12/20/20 12/23/20 lisinopriL 40 mg PO DAILY 12/20/20 12/23/20 Previous Rx's Medication Instructions Recorded Aspirin 81 mg PO DAILY #100 chew 08/05/17 Furosemide [Lasix] 40 mg PO DAILY #30 tab 08/05/17 ceFAZolin [Kefzol] 2 gm IVP Q8HR #114 each 12/26/20 HYDROcodone/APAP 5-325MG [[place] 1 - 2 tab PO Q6HR PRN #30 tab 12/27/20 5-325] Sennosides [Senokot] 2 tab PO DAILY PRN #60 tablet 12/27/20 metroNIDAZOLE [Flagyl] 500 mg PO Q8HR #90 tab 12/27/20 Cephalexin [Keflex] 500 mg PO Q8H #15 cap 08/22/21 Allergies Allergy/AdvReac Type Severity Reaction Status Date / Time No Known Allergies Allergy Verified 08/22/21 16:16 Review of Systems ROS Statement: Those systems with pertinent positive or pertinent negative responses have been documented in the HPI. ROS Other: All systems not noted in ROS Statement are negative. Past Medical History Past Medical History: Heart Failure, Hyperlipidemia, Hypertension, Osteoarthritis (OA) Additional Past Medical History / Comment(s): Chronic systolic CHF, Lt BBB, has bi-Ventricular AICD ([employer]). Frequent urination, History of Any Multi-Drug Resistant Organisms: None Reported Past Surgical History: AICD, Cholecystectomy, Orthopedic Surgery, Pacemaker, Tu bal Ligation Additional Past Surgical History / Comment(s): Left knee arthroscopy, colonoscopy. [facility] bi-Ventricular AICD. ORIF RT ANKLE WITH HARDWARE Past Anesthesia/Blood Transfusion Reactions: No Reported Reaction Type of Cardiac Device: AICD Device Placement Date:: 03-03-2018 Past Psychological History: No Psychological Hx Reported Smoking Status: Never smoker Past Alcohol Use History: None Reported Past Drug Use History: None Reported - Past Family History Father Additional Family Medical History / Comment(s): Father of CHF at the age of 73 yrs. Mother Additional Family Medical History / Comment(s): Mother of CHF at the age of 80yrs. Sister(s) Family Medical History: Cancer, Deep Vein Thrombosis (DVT) General Exam Limitations: no limitations General appearance: alert, in no apparent distress Head exam: Present: atraumatic, normocephalic, normal inspection Eye exam: Present: normal appearance, EOMI Neck exam: Present: normal inspection, full ROM Respiratory exam: Present: normal lung sounds bilaterally. Absent: respiratory distress, wheezes, rales, rhonchi, stridor Cardiovascular Exam: Present: regular rate, normal rhythm, normal heart sounds. Absent: systolic murmur, diastolic murmur, rubs, gallop, clicks GI/Abdominal exam: Absent: distended Extremities exam: Present: full ROM, normal capillary refill Left Forearm Wrist exam: Present: normal inspection, full ROM. Absent: tenderness, swelling, abrasion, laceration, ecchymosis, deformity, crepitus Hand Wrist exam: Present: full ROM, other (Chilo in the distal aspect of the left fourth finger. Flexor surface. No other foreign bodies. Does not appear to be involving the joint, no nail plate involvement, pulses are intact). Absent: swelling, abrasion, laceration, ecchymosis, deformity, crepitus, dislocation Neuro motor exam: Present: wrist extension intact, thumb opposition intact, thumb IP flexion intact, thumb adduction intact, fingers 2-5 abduction intact Neurosensory exam: Present: radial nerve intact, ulnar nerve intact, median nerve intact Vascular: Present: normal capillary refill. Absent: vascular compromise, Pallo, pulse deficit radial art, pulse deficit ulnar art, pulse deficit brachial art Neurological exam: Present: alert, oriented X3, CN II-XII intact. Absent: motor sensory deficit Psychiatric exam: Present: normal affect, normal mood Skin exam: Present: warm, dry, normal color. Absent: rash Course Vital Signs 08/22/21 16:13 Temperature 98.6 F Pulse Rate 79 Respiratory 18 Rate Blood Pressure 153/72 O2 Sat by Pulse 99 Oximetry Procedures - Procedures Initial comment: Left fourth finger was prepped and draped in sterile fashion. Betadine was used to cleanse the area. Local anesthesia with 1% lidocaine without epinephrine. 1.5 mL of anesthetic was used. Patient had adequate anesthesia. Also advised her used to advance the needle through the skin. The carlito was no tom. Carlito was cut easily with wire cutters. Chilo was backed out without difficulty. There was no evidence remaining foreign body. Patient had good tendon function against resistance. Wound was cleansed thoroughly. Soak in warm soapy water. Patient tolerated well Medical Decision Making - Medical Decision Making Isolated fishhook embedded in the distal aspect left fourth finger. Remold without difficulty. Patient counseled on signs and symptoms of infection. Counseled on wound care. Tetanus updated. Prophylactic advice given. Patient was told to return to the ER for any signs or symptoms worsen. Told to return immediately if any other problems arise. All questions answered. Treatment plan discussed. Patient in agreement Every effort has been made to ensure accuracy of this dictation. However, due to the limitations of electronic medical records and dictation devices, errors in charting still occur. Supervisors Dr. Sherwin Casey Clinical Impression: Chilo injury to finger Narrative: Soft tissue foreign body, left fourth finger Disposition: HOME SELF-CARE Condition: Good Instructions (If sedation given, give patient instructions): Soft Tissue Foreign Body (ED) Additional Instructions: Soak the finger in warm soapy water for 10-15 minutes at a time 4 times daily. Take the antibiotics as directed. Her tetanus was updated here today. Follow-up with your regular physician as directed. Return to the ER immediately if any symptoms worsen, new symptoms arise, or any other problems develop. Prescriptions: Cephalexin [Keflex] 500 mg PO Q8H #15 cap Is patient prescribed a controlled substance at d/c from ED?: No Referrals: Cleveland Patel MD [Primary Care Provider] - 1-2 days (As needed) Time of Disposition: 18:22
== END 2021-08-22 18:42 | disposition home or self-care (01) ==
LOC: EC 16:00
DX: S60.455A Superficial foreign body of left ring finger, initial encounter (principal); I11.0 Hypertensive heart disease with heart failure; I50.22 Chronic systolic (congestive) heart failure; E78.5 Hyperlipidemia, unspecified; M19.90 Unspecified osteoarthritis, unspecified site; Z79.01 Long term (current) use of anticoagulants; Z79.82 Long term (current) use of aspirin; Z79.899 Other long term (current) drug therapy; Z95.810 Presence of automatic (implantable) cardiac defibrillator; Z23 Encounter for immunization; W45.8XXA Other foreign body or object entering through skin, initial encounter
CPT/HCPCS: 73130; 90715; 99283; 90471; J2001

== ENCOUNTER 2023-03-17 05:38 | Emergency (ER) | payer MEDICARE ==
[2023-03-17 05:54] VITALS: BP 150/71; PULSE 90; RESP 18; TEMP 97.9
[2023-03-17] MEDS ORDERED: AMOXIC-POT CLAV 875MG STARTER PACK 2 TAB BTL PO STA (06:11)
[2023-03-17] MEDS ORDERED: IBUPROFEN 600 MG STARTER PACK 4 TAB BTL PO STA (06:11)
--- NOTE | 2023-03-17 06:14 | ED ---
Animal Bite HPI - General Chief Complaint: Animal Bite Stated Complaint: Left Hand Infected Animal Bite Time Seen by Provider: 03/17/23 05:59 Source: patient, RN notes reviewed Mode of arrival: ambulatory Limitations: no limitations - History of Present Illness Initial Comments: This is a 72-year-old female who presents to the emergency department for a cat bite to the left hand. States that 2 days ago, her cat was woken up from a deep sleep, causing him to become angry and he bit her in the left hand and forearm. She is concerned that the area appears swollen and red and is concerned about infection. Pain is bearable at this time. Denies any fevers or chills. Her tetanus vaccine is up to date and her cat is fully immunized, including the rabi es vaccine. Complaint: animal bite Onset/Timin -: days(s) - Related Data Home Medications Medication Instructions Recorded Confirmed Apixaban [Eliquis] 5 mg PO BID 10/28/19 12/23/20 Atorvastatin [Lipitor] 80 mg PO DAILY 12/20/20 12/23/20 Calcium Carbonate/Vitamin D3 1 each PO BID 12/20/20 12/23/20 [Calcium 500-Vit D3 5 Mcg (200 Iu)] Doxycycline [Vibramycin] 100 mg PO BID 12/20/20 12/23/20 carvediloL 25 mg PO BID 12/20/20 12/23/20 lisinopriL 40 mg PO DAILY 12/20/20 12/23/20 Previous Rx's Medication Instructions Recorded Aspirin 81 mg PO DAILY #100 chew 08/05/17 Furosemide [Lasix] 40 mg PO DAILY #30 tab 08/05/17 ceFAZolin [Kefzol] 2 gm IVP Q8HR #114 each 12/26/20 HYDROcodone/APAP 5-325MG [[place] 1 - 2 tab PO Q6HR PRN #30 tab 12/27/20 5-325] Sennosides [Senokot] 2 tab PO DAILY PRN #60 tablet 12/27/20 metroNIDAZOLE [Flagyl] 500 mg PO Q8HR #90 tab 12/27/20 Cephalexin [Keflex] 500 mg PO Q8H #15 cap 08/22/21 Amoxic-Pot Clav 875-125Mg 1 tab PO Q12HR 10 Days #20 tab 03/17/23 [Augmentin 875-125] Allergies Allergy/AdvReac Type Severity Reaction Status Date / Time No Known Allergies Allergy Verified 08/22/21 16:16 Review of Systems ROS Statement: Those systems with pertinent positive or pertinent negative responses have been documented in the HPI. ROS Other: All systems not noted in ROS Statement are negative. Past Medical History Past Medical History: Heart Failure, Hyperlipidemia, Hypertension, Osteoarthritis (OA) Additional Past Medical History / Comment(s): Chronic systolic CHF, Lt BBB, has bi-Ventricular AICD ([employer] [facility]). Frequent urination, History of Any Multi-Drug Resistant Organisms: None Reported Past Surgical History: AICD, Cholecystectomy, Orthopedic Surgery, Pacemaker, Tubal Ligation Additional Past Surgical History / Comment(s): Left knee arthroscopy, colonoscopy. [facility] bi-Ventricular AICD. ORIF RT ANKLE WITH HARDWARE Past Anesthesia/Blood Transfusion Reactions: No Reported Reaction Type of Cardiac Device: AICD Device Placement Date:: 03-03-2018 Past Psychological History: No Psychological Hx Reported Smoking Status: Never smoker Past Alcohol Use History: None Reported Past Drug Use History: None Reported - Past Family History Father Additional Family Medical History / Comment(s): Father of CHF at the age of 73 yrs. Mother Additional Family Medical History / Comment(s): Mother of CHF at the age of 80yrs. Sister(s) Family Medical History: Cancer, Deep Vein Thrombosis (DVT) General Exam Limitations: no limitations General appearance: alert, in no apparent distress Head exam: Present: atraumatic, normocephalic, normal inspection Respiratory exam: Present: normal lung sounds bilaterally. Absent: respiratory distress, wheezes, rales, rhonchi, stridor Cardiovascular Exam: Present: regular rate, normal rhythm, normal heart sounds. Absent: systolic murmur, diastolic murmur, rubs, gallop, clicks Extremities exam: Present: other (Bite wound to the dorsal aspect of the left hand and dorsal aspect of the left forearm. There is surrounding erythema, swelling, and tenderness. There is no drainage. Furnace Keeper strength is equal and intact bilaterally. Full range of motion of the left upper extremity. 2+ radial pulses.) Neurological exam: Present: alert, oriented X3, CN II-XII intact Psychiatric exam: Present: normal affect, normal mood Course Vital Signs 03/17/23 05:41 Temperature 97.9 F Pulse Rate 90 Respiratory 18 Rate Blood Pressure 150/71 O2 Sat by Pulse 97 Oximetry Medical Decision Making - Medical Decision Making This is a 72-year-old female who presents to the emergency department for a cat bite. Was pt. sent in by a medical professional or institution? @ -No Did you speak to anyone other than the patient for history? @ -No Did you review nursing and triage notes? @ -Yes, and I agree, it is accurate with regards to the patient's symptoms. Were old charts reviewed? @ -No Differential Diagnosis? @ -Not applicable EKG interpreted by me (3pts min.)? @ -Not obtained X-rays interpreted by me (1pt min.)? @ -Not obtained CT interpreted by me (1pt min.)? @ -Not obtained U/S interpreted by me (1pt. min.)? @ -Not obtained What testing was considered but not performed? (CT, X-rays, U/S, labs)? Why? @ -None What meds were considered but not given? Why? @ -None Did you discuss the management of the patient with other professionals? @ -No Did you reconcile home meds? @ -No Was smoking cessation discussed for >3mins.? @ -No Was critical care preformed (if so, how long)? @ -No Were there social determinants of health that impacted care today? How? (Homelessness, low income, unemployed, alcoholism, drug addiction, transportation, low edu. Level, literacy, decrease access to med. care, [facility] [facility], rehab)? @ -No Was there de-escalation of care discussed even if they declined? (Discuss DNR or withdrawal of care, Hospice)? @ -No What co-morbidities impacted this encounter? (DM, HTN, Smoking, COPD, CAD, Cancer, CVA, Hep., AIDS, mental health diagnosis, sleep apnea, morbid obesity)? @ -None Was patient admitted / discharged? @ -Discharged. Physical examination is consistent with developing infection. She was given a prescription for Augmentin to be taken for 10 days. Advised ibuprofen and Tylenol as needed for pain relief. We did discuss that bite wounds, especially cat bites, can become aggressive fairly quickly, and she was given very strict return parameters and signs to look out for such as increasing pain, redness, swelling, and fevers. Patient discharged home in stable condition with instructions to follow up with her primary care provider. Undiagnosed new problem with uncertain prognosis? @ -None Drug Therapy requiring intensive monitoring for toxicity (Heparin, Nitro, Insulin, Cardizem)? @ -None Were any procedures done? @ -None Diagnosis/symptom? @ -Cat bite Acute, or Chronic, or Acute on Chronic? @ -Acute Uncomplicated (without systemic symptoms) or Complicated (systemic symptoms)? @ -Uncomplicated Side effects of treatment? @ -None Exacerbation, Progression, or Severe Exacerbation] @ -Not applicable Poses a threat to life or bodily function? @ -No Return precautions reviewed in depth, the patient is instructed to return to the emergency department with any new, worsening, or concerning symptoms. Patient verbalized understanding. This case was discussed in detail with the attending ED physician, Dr. Sheldon. Presentation, findings, and treatment plan discussed in detail as well. Disposition Clinical Impression: Cat bite Disposition: HOME SELF-CARE Condition: Stable Instructions (If sedation given, give patient instructions): Animal Bite (ED) Additional Instructions: Return to the emergency department with any new, worsening, or concerning symptoms, especially increasing swelling, pain, redness, or fevers. Take the antibiotic as prescribed for 10 days. Alternate with ibuprofen and Tylenol as needed for pain relief. Follow up with your primary care provider in 1-2 days. Prescriptions: Amoxic-Pot Clav 875-125Mg [Augmentin 875-125] 1 tab PO Q12HR 10 Days #20 tab Is patient prescribed a controlled substance at d/c from ED?: No Referrals: Cleveland Patel MD [Primary Care Provider] - 1-2 days
== END 2023-03-17 06:20 | disposition home or self-care (01) ==
LOC: EC 05:38
DX: S61.452A Open bite of left hand, initial encounter (principal); I11.0 Hypertensive heart disease with heart failure; I50.9 Heart failure, unspecified; E78.5 Hyperlipidemia, unspecified; M19.90 Unspecified osteoarthritis, unspecified site; Z79.1 Long term (current) use of non-steroidal anti-inflammatories (NSAID); Z79.01 Long term (current) use of anticoagulants; Z79.899 Other long term (current) drug therapy; W55.01XA Bitten by cat, initial encounter
CPT/HCPCS: 99283

== ENCOUNTER → 2024-03-27 | Outpatient (CLI) | payer MEDICARE ==
--- NOTE | 2024-03-27 18:00 | MM ---
Reason for Exam: Screening (asymptomatic). Last mammogram was performed 6 year(s) and 5 month(s) ago. Patient History: Menarche at age 13. First Full-Term at age 20. Postmenopausal. Risk Values: Mary 5 year model risk: 1.3%. NCI Lifetime model risk: 3.3%. Prior Study Comparison: 11/13/2011 Bilateral Screening Mammogram, [facility]. 01/22/2014 Bilateral Screening Mammogram, [facility]. 10/30/2017 Bilateral Screening Mammogram, [facility]. Tissue Density: There are scattered areas of fibroglandular density. Findings: Analyzed By CAD. The pattern is symmetrical. Vascular calcification is present bilaterally. No significant interval change No suspicious groups of microcalcifications, spiculated or lobular masses, architectural distortion or other secondary signs of malignancy are mammographically apparent. Overall Assessment: Benign, BI-RAD 2 Management: Screening Mammogram of both breasts in 1 year. A negative mammogram report should not preclude additional follow up of suspicious palpable abnormalities. Patient should continue monthly self breast exam. A clinical breast exam by your physician is recommended on an annual basis and results should be correlated with mammographic findings. Note on Mary scores and lifetime risk: 1. A Mary score greater than 3% is considered moderate risk. If this is the case, consider specialist referral to assess eligibility for a risk reducing agent. 2. If overall lifetime risk for the development of breast cancer is 20% or higher, the patient may qualify for future screening with alternating mammogram and breast MRI. [facility], , 03/27/2024 5:57 PM. Electronically signed and approved by: Kunal Jimenez D.O. Radiologis
== END | disposition home or self-care (01) ==
LOC: RADMAMWWP 12:21
PROVIDERS: ATTEND Family Medicine
DX: Z12.31 Encounter for screening mammogram for malignant neoplasm of breast (principal); Z78.0 Asymptomatic menopausal state; R92.323 Mammographic fibroglandular density, bilateral breasts
CPT/HCPCS: 77063; 77067